=== PATIENT | male | born 1975 | race Caucasian/White ===

== ENCOUNTER 2018-03-27 15:27 | Inpatient (IN) | payer MEDICAID, SELFPAY ==
[2018-03-27] VITALS (8 sets, daily range): BP systolic 108–133; BP diastolic 65–89; PULSE 74–89; RESP 16–20; TEMP 36.8–37.1; O2SAT 92–99; BMI 36.7; BMI 35.7; BMI 35.8
--- NOTE | 2018-03-27 15:54 | CT_ITS ---
STUDY: CT BRAIN WITHOUT CONTRAST REASON FOR EXAM: Male, 42 years old. Headache after a fall, patient has left-sided paralysis RADIATION DOSAGE (If Supplied By Facility): CTDIvol = ( 44.99 ) mGy, DLP = ( 832.67 ) mGycm TECHNIQUE: Transaxial CT imaging of the brain was performed without administration of intravenous contrast material. Individualized dose optimization techniques were used for this CT. COMPARISON: None. FINDINGS: There is evidence of a right-sided GARMENT [employer]ISHER shunt tube, tip is in the midline. There is hypoattenuation involving most of the right cerebral hemisphere consistent with previous infarct or ischemic event. There is negative mass effect from the encephalomalacia. The ventricles are effaced. The basilar cisterns are widely patent. There is loss of cortez-white matter differentiation the left cerebral hemisphere again consistent with likely previous ischemic event. There are subdural effusions with subdural calcifications. There is no acute hemorrhage there is some evidence of pneumocephalus likely from the GARMENT FINISHER shunt. No skull fracture or scalp hematoma there are dense falcine calcifications. CT/Brain/Head without Contrast IMPRESSION: Hypoattenuation involving nearly the entirety of the right cerebral hemisphere likely from previous ischemic event. There is also marked abnormality in the left sternal hemisphere with loss of cortez-white matter differentiation also likely due to previous ischemic event. There is no acute hemorrhage Satisfactory positioning of a GARMENT FINISHER shunt tube Effacement of the ventricular system, basilar cisterns widely patent Bilateral subdural effusions Subdural calcifications and prominent falcine calcification Electronically Signed: Teddy Hernández MD at 16:58 EDT , Service support ,
[2018-03-27] MEDS: 0.9% Normal Saline 1,000 ML 250 ML IV (16:05)
--- NOTE | 2018-03-27 16:05 | ED.VISSUMM ---
- ER Visit Summary Date of Service: 03/27/18 Chief Complaint: Increasing weakness and frequent falls History of Present Illness: The patient is a 42 M who presents by ambulance because he was on the floor for 1 hour. Friend called ambulance. Mother was in the room when I saw patient. He has had increasing falls over the last 2-3 weeks. Increasing weakness in his legs. He lives alone. 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 He has a shunt in place. He has the original shunt still in place. He denies headache. I trouble with his vision. I trouble speech or swallowing. He complains of generalized weakness in his legs. He is normally able to ambulate. He denies any ringing in his ears or decreased hearing. He denies any ocular pain, photophobia. He denies neck pain. He denies chest pain, palpitations, orthopnea or PND. He denies shortness of breath, cough or dyspnea on exertion. He denies nausea, vomiting diarrhea. He denies dysuria, frequency, urgency or hematuria. He denies any pain. Patient does live alone. He states he has not bathed in 3 days. He is uncertain whether he is lost any weight. Physical Examination: Vital signs are marked for slight elevation blood pressure 133/88. Patient has scars noted scalp secondary to traumatic brain injury and placement of shunt. Pupils equal round reactive. Extra muscle intact. Difficult to see fundi. No hemotympanum. No septal deviation hematoma. No TMJ tenderness. No evidence of malocclusion. Trachea is midline. There is no cervical spine tenderness. Contractures left upper extremity secondary to original injury. Heart is regular without murmur, gallop or rub lungs are clear to auscultation. Abdomen is soft nontender. He has 1-2+ pitting edema lower extremity with venous dermatologic stasis changes noted. He is alert he is oriented. He has neurologic deficit left side greater than right. Test Results: CT of the head reveals proper position of the shunt. Small bilateral chronic subdural hematomas and in the basement of the entire right hemisphere secondary to prior injury. CMP is essentially unremarkable. UA is pending at time of this dictation and admission Emergency Department Course and Treatment: With frequent falls increasing weakness and history of shunt CT of the head was obtained to evaluate for any intracranial process. He was placed on a monitor to evaluate for any dysrhythmia. Since he has not been eating well unable to care for self baseline blood work was obtained. Patient will require hospitalization for safety reasons and consultation with case management. Treatment Plan: Case was discussed with hospitalist. He will be admitted/MedSurg floor with consult to case management Disposition: Medical surgical unit Impression: 1. Failure to thrive 2. Frequent falls 3. Traumatic brain injury, remote with chronic small bilateral subdural hematomas This note was generated with [employer] dictation software. It may contain incorrect words, spelling, and punctuation that were not noted in review of the chart prior to signing ED Disposition - Plan for ED Patient: Chief Complaint: Fall Referrals: Heron Mcdaniel DO [Primary Care Provider] -
[2018-03-27 16:43] LABS: ALB/GLOB Ratio 0.8 RATIO (0.9-2.4); AST(SGOT) 11 U/L (15-37); Alanine Aminotransfer ALT/SGPT 26 U/L (16-61); Albumin, Serum 3.1 g/dL (3.2-5.0); Alkaline Phosphatase 74 U/L (45-117); Anion Gap 7 (5-15); BUN 8 mg/dL (7-18); BUN/Creat Ratio 10.4 RATIO (10-20); Calcium,Total 7.9 mg/dL (8.5-10.1); Chloride 107 mmol/L (98-107); Creatinine, Serum 0.77 mg/dL (0.70-1.30); EST Glomerular Filtration Rate 118 mL/min (>60); Est Glom Filt Rate - Afr Amer 142 mL/min (>60); Estimated Creatinine Clearance 124.97 ml/min; Globulin 3.8 g/dL (2.2-4.2); Glucose 113 mg/dL (74-106); Protein, Total 6.9 g/dL (6.4-8.2); Sodium Level 142 mmol/L (136-145)
--- NOTE | 2018-03-27 17:05 | PCM.HP.STD ---
Problem List (1) Encephalopathy acute Status: Acute (2) Frequent falls Status: Acute (3) Failure to thrive in adult Status: Acute (4) TBI (traumatic brain injury) Status: Chronic Qualifiers: Encounter type: sequela Loss of consciousness presence/duration: with LOC of unspecified duration Qualified Code(s): S06.9X9S - Unspecified intracranial injury with loss of consciousness of unspecified duration, sequela (5) Left hemiplegia Status: Chronic (6) Stool incontinence Status: Chronic Qualifiers: Fecal incontinence type: unspecified Qualified Code(s): R15.9 - Full incontinence of feces (7) Tobacco use Status: Chronic (8) Obesity (BMI 30-39.9) Status: Chronic (9) Depression Status: Chronic Qualifiers: Depression Type: unspecified Qualified Code(s): F32.9 - Major depressive disorder, single episode, unspecified History of Present Illness Date of Admission: 03/27/18 Chief Complaint: Failure to Thrive, Falls, Confusion The patient is a 42 y/o M w/ PMHx: Depression, Tobacco use, Obesity, TBI 1995 w/ following intermittent stool/urine incontinence, L sided hemiplegia w/ CIVIL CELEBRANT shunt who presents to the [facility] on 03/27/18 with history of ongoing depression with no suicidal ideation which she attributes as to the etiology for worsening inability to care for himself but additionally notes recent confusion, frequent falls from his wheelchair with increased weakness, unable to transfer which he has been able to do prior leading to an inability to maintain a safe living and clean environment. Upon ED presentation he is disheveled, covered in stool, grime of several weeks of not bathing and wearing the same clothing. He admits to not bathing likely for several weeks. He does note that his mother lives near him but is unclear about her ability to help in his care. In the ED workup included T 98.3, heart rate 87, BP 133/88, respiratory rate 17, 92% room air, CMP not marked appearing side mild glucose elevation 113, CBC not obtained in the ED, urinalysis requested per ED and pending however given patient's current disheveled state with severe intertrigo suspected be a poor sample, CT head with hypoattenuation involving nearly the entirety of the right cerebral hemisphere likely from previous ischemic events and also marked abnormality in the left sternal hemisphere with loss of cortez white matter likely due to previous ischemic event, no acute hemorrhage, satisfactory positioning of the CIVIL CELEBRANT shunt tube, effacement of the ventricular system, basilar cisterns widely patent, bilateral subdural effusions, subdural calcifications and prominent falcine calcification. In the ED patient administered NS. Given inability to care for self safely patient admitted for CM, SW evaluation for placement needs consideration. Past Medical History Past Medical History (Chronic Problems): Chronic Problems TBI (traumatic brain injury) (Chronic) Left hemiplegia (Chronic) Stool incontinence (Chronic) Tobacco use (Chronic) Obesity (BMI 30-39.9) (Chronic) Depression (Chronic) Allergies No Known Allergies Allergy (Verified 05/14/17 18:23) Home Medications: Ambulatory Orders Medication Instructions Recorded No Known/Unobtainable [No Known 03/01/17 Home Medications] Psychiatric History: Depression Lives: Alone Smoking Status: Current every day smoker - / ppd, occasionally rolls his own. Tobacco Use: Cigarettes Alcohol: Occasional Drugs: Marijuana - *Family History Paternal History Items: - - Denies any marked maternal or paternal family history including DM, HTN, HD. Maternal History Items: - - Denies any marked maternal or paternal family history including DM, HTN, HD. Review of Systems Constitutional: Reports: Malaise, Weakness, Fatigue. Denies: Chills, Fever, Weight Change HEENT: Denies: Head Aches, Sinus Congestion, Sinus Drainage Cardiovascular: Denies: Chest Pain, Chest Pressure, Chest Tightness, Light Headedness, Palpitations Respiratory: Denies: Cough, Shortness of Breath, Shortness of breath at rest, Sputum production Gastrointestinal: Reports: - - Stool incontinence occasionally.. Denies: Abdominal Pain, Nausea, Vomiting Genitourinary: Reports: Incontinence. Denies: Dysuria Musculoskeletal: Denies: Joint Pain, Joint Tenderness Skin: Reports: Rash, Skin Changes. Denies: Wounds Neurological: Reports: Balance problems, Confusion, Focal weakness, Numbness, Tingling Psychiatric: Reports: Depression. Denies: Anxiety, Homicidal Ideations, Suicidal Ideations Hematologic/ Lymphatic: Denies: Easy Bruising, Easy Bleeding VTE Information - Inpt Only VTE Present on Admission: No VTE Mechan Device Prophylaxis: SCD's VTE Pharm Prophylaxis ordered?: Yes Patient Problems: Active and Suspected Problems Failure to thrive in adult (Acute) Frequent falls (Acute) Encephalopathy acute (Acute) Subjective: Seated upright in the ED bed, answering most questions appropriately, notes depression but extremely cheerful. Objective: Physical Examination: General: awake, alert, oriented 3/4, odd affect as extremely cheerful, speech excited but notes depressed, remains cooperative, seated upright in the ED bed in no apparent distress, immediately foul smelling and shovel appearance upon entering room. Skin: normal color, turgor, no icterus, cyanosis except notable severe bilateral groin intertrigo. HEENT: AT/NC, EOMI, does have chronic L peripheral field deficit, PERRLA, dry MM, no carotid bruits or JVD noted. Lungs: CTA bilaterally, moderate effort, moderate decrease BL bases, no rales, ronchi or wheezing. Heart: Regular rate and rhythm; no gallop, rub audible. Abdomen: soft, obese, NTTP, ND, normal BS, no HSM. Extremities: no cyanosis, clubbing, BL LE mild ankle edema, coated in dry skin, dirt, poor foot care BL. Neurological: patient awake, alert, oriented as noted; cognitive function appears decreased, but unclear baseline, may in fact be baseline intact but given severity of disheveled, unkempt status suspect he has had worsened status; pupils equally reactive to light and accomodation; cranial nerves grossly normal, moving extremities expect L chronic hemiplegia, strength severely globally decreased, unable to sit up in the ED bed by himself, requires full assist. Psychiatric: Odd affect as extremely cheerful, speech excited but notes depressed, denies SI. - Physical Exam Vital Signs Temp Pulse Resp BP Pulse Ox 98.3 F 87 17 133/88 H 92 03/27/18 15:28 03/27/18 15:28 03/27/18 15:28 03/27/18 15:28 03/27/18 15:28 Oxygen Delivery Method Room Air Weight: 248 lb 10.903 oz Body Mass Index (BMI) 36.7 Laboratory Tests Past 24 Hrs 03/27/18 16:03 Sodium 142 Potassium 4.0 Chloride 107 Carbon Dioxide 28.0 Anion Gap 7 BUN 8 Creatinine 0.77 Estim Creat Clear Calc 124.97 Est GFR (MDRD) Af Amer 142 Est GFR (MDRD) Non-Af 118 BUN/Creatinine Ratio 10.4 Glucose 113 H Calcium 7.9 L Total Bilirubin 0.60 AST 11 L ALT 26 Alkaline Phosphatase 74 Total Protein 6.9 Albumin 3.1 L Globulin 3.8 Albumin/Globulin Ratio 0.8 L Assessment/Plan All Active Problems Failure to thrive in adult (Acute) Frequent falls (Acute) Encephalopathy acute (Acute) The patient is a 42 y/o M w/ PMHx: Depression, Tobacco use, Obesity, TBI 1995 w/ following intermittent stool/urine incontinence, L sided hemiplegia w/ CIVIL CELEBRANT shunt who presents to the [facility] on 03/27/18 with history of ongoing depression with no suicidal ideation which she attributes as to the etiology for worsening inability to care for himself but additionally notes recent confusion, frequent falls from his wheelchair with increased weakness, unable to transfer which he has been able to do prior leading to an inability to maintain a safe living and clean environment. (1) Frequent Falls, ? Encephalopathy unclear etiology, Failure to Thrive w/ History of Remote TBI w/ Chronic L sided Hemiplegia, Left Vision Field Deficit, Incontinence (Stool/Urine) concerning for Possible Infection, Possible Neurological Etiology, Unclear Specific: ED workup included CMP not marked appearing side mild glucose elevation 113, CBC pending, urinalysis requested per ED and pending however given patient's current disheveled state with severe intertrigo suspected be a poor sample, CT head with hypoattenuation involving nearly the entirety of the right cerebral hemisphere likely from previous ischemic events and also marked abnormality in the left sternal hemisphere with loss of cortez white matter likely due to previous ischemic event, no acute hemorrhage, satisfactory positioning of the CIVIL CELEBRANT shunt tube, effacement of the ventricular system, basilar cisterns widely patent, bilateral subdural effusions, subdural calcifications and prominent falcine calcification. Given presentation, concern for possible underlying neurological etiology for current decline aside suspected depression, will admit to PCU, maintain on telemetry, obtain straight catheterization urine given status, unclear intervention w/ trauma intervention thus hold on MRI and patient unable to give details, repeat Neurology consultation, maintain on asa, obtain mag, obtain TSH, UA as noted, ammonia level, cardiac enzyme x 1, obtain CBC with differential. Maintain on fall precautions, PT, OT, CM consulted for suspected placement needs. (2) Intertrigo, Severe: Will cleanse upon admission, bathing daily, initiate nystatin powder. (3) Depression: Will start zoloft low dose with plan for titration upward. Will need therapy assessment at SNF. Denies SI. CM, SW consulted. (4) Hyperglycemia: Admission glucose mildly elevated, HgbA1c pending. (5) Poor Foot Care, Contractures, Concurrent Onychomycosis: Podiatry consultation pending. (6) Tobacco Abuse: Encouraged cessation, inpatient consultation per RT, NR if desired. (7) Obesity: Weight loss and lifestyle changes encouraged, nutrition consulted for education and teaching. (8) GERD: Famotidine. (9) DVT Prophylaxis: SCDs, lovenox. Code Visit Inpatient E&M: 67859 Init Hosp L3
--- NOTE | 2018-03-27 17:26 | HP.PCM_ITS ---
Problem List (1) Encephalopathy acute Status: Acute (2) Frequent falls Status: Acute (3) Failure to thrive in adult Status: Acute (4) TBI (traumatic brain injury) Status: Chronic Qualifiers: Encounter type: sequela Loss of consciousness presence/duration: with LOC of unspecified duration Qualified Code(s): S06.9X9S - Unspecified intracranial injury with loss of consciousness of unspecified duration, sequela (5) Left hemiplegia Status: Chronic (6) Stool incontinence Status: Chronic Qualifiers: Fecal incontinence type: unspecified Qualified Code(s): R15.9 - Full incontinence of feces (7) Tobacco use Status: Chronic (8) Obesity (BMI 30-39.9) Status: Chronic (9) Depression Status: Chronic Qualifiers: Depression Type: unspecified Qualified Code(s): F32.9 - Major depressive disorder, single episode, unspecified History of Present Illness Date of Admission: 03/27/18 Chief Complaint: Failure to Thrive, Falls, Confusion The patient is a 42 y/o M w/ PMHx: Depression, Tobacco use, Obesity, TBI 1995 w / following intermittent stool/urine incontinence, L sided hemiplegia w/ REHAB MANAGER shunt who presents to the [facility] on 03/27/18 with history of ongoing depression with no suicidal ideation which she attributes as to the etiology for worsening inability to care for himself but additionally notes recent confusion, frequent falls from his wheelchair with increased weakness, unable to transfer which he has been able to do prior leading to an inability to maintain a safe living and clean environment. Upon ED presentation he is disheveled, covered in stool, grime of several weeks of not bathing and wearing the same clothing. He admits to not bathing likely for several weeks. He does note that his mother lives near him but is unclear about her ability to help in his care. In the ED workup included T 98.3, heart rate 87, BP 133/88, respiratory rate 17, 92% room air, CMP not marked appearing side mild glucose elevation 113, CBC not obtained in the ED, urinalysis requested per ED and pending however given patient's current disheveled state with severe intertrigo suspected be a poor sample, CT head with hypoattenuation involving nearly the entirety of the right cerebral hemisphere likely from previous ischemic events and also marked abnormality in the left sternal hemisphere with loss of cortez white matter likely due to previous ischemic event, no acute hemorrhage, satisfactory positioning of the REHAB MANAGER shunt tube, effacement of the ventricular system, basilar cisterns widely patent, bilateral subdural effusions, subdural calcifications and prominent falcine calcification. In the ED patient administered NS. Given inability to care for self safely patient admitted for CM, SW evaluation for placement needs consideration. Past Medical History Past Medical History (Chronic Problems): Chronic Problems TBI (traumatic brain injury) (Chronic) Left hemiplegia (Chronic) Stool incontinence (Chronic) Tobacco use (Chronic) Obesity (BMI 30-39.9) (Chronic) Depression (Chronic) Allergies No Known Allergies Allergy (Verified 05/14/17 18:23) Home Medications: Ambulatory Orders Medication Instructions Recorded No Known/Unobtainable [No Known 03/01/17 Home Medications] Psychiatric History: Depression Lives: Alone Smoking Status: Current every day smoker - / ppd, occasionally rolls his own. Tobacco Use: Cigarettes Alcohol: Occasional Drugs: Marijuana - *Family History Paternal History Items: - - Denies any marked maternal or paternal family history including DM, HTN, HD. Maternal History Items: - - Denies any marked maternal or paternal family history including DM, HTN, HD. Review of Systems Constitutional: Reports: Malaise, Weakness, Fatigue. Denies: Chills, Fever, Weight Change HEENT: Denies: Head Aches, Sinus Congestion, Sinus Drainage Cardiovascular: Denies: Chest Pain, Chest Pressure, Chest Tightness, Light Headedness, Palpitations Respiratory: Denies: Cough, Shortness of Breath, Shortness of breath at rest, Sputum production Gastrointestinal: Reports: - - Stool incontinence occasionally.. Denies: Abdominal Pain, Nausea, Vomiting Genitourinary: Reports: Incontinence. Denies: Dysuria Musculoskeletal: Denies: Joint Pain, Joint Tenderness Skin: Reports: Rash, Skin Changes. Denies: Wounds Neurological: Reports: Balance problems, Confusion, Focal weakness, Numbness, Tingling Psychiatric: Reports: Depression. Denies: Anxiety, Homicidal Ideations, Suicidal Ideations Hematologic/ Lymphatic: Denies: Easy Bruising, Easy Bleeding VTE Information - Inpt Only VTE Present on Admission: No VTE Mechan Device Prophylaxis: SCD's VTE Pharm Prophylaxis ordered?: Yes Patient Problems: Active and Suspected Problems Failure to thrive in adult (Acute) Frequent falls (Acute) Encephalopathy acute (Acute) Subjective: Seated upright in the ED bed, answering most questions appropriately, notes depression but extremely cheerful. Objective: Physical Examination: General: awake, alert, oriented 3/4, odd affect as extremely cheerful, speech excited but notes depressed, remains cooperative, seated upright in the ED bed in no apparent distress, immediately foul smelling and shovel appearance upon entering room. Skin: normal color, turgor, no icterus, cyanosis except notable severe bilateral groin intertrigo. HEENT: AT/NC, EOMI, does have chronic L peripheral field deficit, PERRLA, dry MM , no carotid bruits or JVD noted. Lungs: CTA bilaterally, moderate effort, moderate decrease BL bases, no rales, ronchi or wheezing. Heart: Regular rate and rhythm; no gallop, rub audible. Abdomen: soft, obese, NTTP, ND, normal BS, no HSM. Extremities: no cyanosis, clubbing, BL LE mild ankle edema, coated in dry skin, dirt, poor foot care BL. Neurological: patient awake, alert, oriented as noted; cognitive function appears decreased, but unclear baseline, may in fact be baseline intact but given severity of disheveled, unkempt status suspect he has had worsened status ; pupils equally reactive to light and accomodation; cranial nerves grossly normal, moving extremities expect L chronic hemiplegia, strength severely globally decreased, unable to sit up in the ED bed by himself, requires full assist. Psychiatric: Odd affect as extremely cheerful, speech excited but notes depressed, denies SI. - Physical Exam Vital Signs Temp Pulse Resp BP Pulse Ox 98.3 F 87 17 133/88 H 92 03/27/18 15:28 03/27/18 15:28 03/27/18 15:28 03/27/18 15:28 03/27/18 15:28 Oxygen Delivery Method Room Air Weight: 248 lb 10.903 oz Body Mass Index (BMI) 36.7 Laboratory Tests Past 24 Hrs 03/27/18 16:03 Sodium 142 Potassium 4.0 Chloride 107 Carbon Dioxide 28.0 Anion Gap 7 BUN 8 Creatinine 0.77 Estim Creat Clear Calc 124.97 Est GFR (MDRD) Af Amer 142 Est GFR (MDRD) Non-Af 118 BUN/Creatinine Ratio 10.4 Glucose 113 H Calcium 7.9 L Total Bilirubin 0.60 AST 11 L ALT 26 Alkaline Phosphatase 74 Total Protein 6.9 Albumin 3.1 L Globulin 3.8 Albumin/Globulin Ratio 0.8 L Assessment/Plan All Active Problems Failure to thrive in adult (Acute) Frequent falls (Acute) Encephalopathy acute (Acute) The patient is a 42 y/o M w/ PMHx: Depression, Tobacco use, Obesity, TBI 1995 w / following intermittent stool/urine incontinence, L sided hemiplegia w/ REHAB MANAGER shunt who presents to the [facility] on 03/27/18 with history of ongoing depression with no suicidal ideation which she attributes as to the etiology for worsening inability to care for himself but additionally notes recent confusion, frequent falls from his wheelchair with increased weakness, unable to transfer which he has been able to do prior leading to an inability to maintain a safe living and clean environment. (1) Frequent Falls, ? Encephalopathy unclear etiology, Failure to Thrive w/ History of Remote TBI w/ Chronic L sided Hemiplegia, Left Vision Field Deficit, Incontinence (Stool/Urine) concerning for Possible Infection, Possible Neurological Etiology, Unclear Specific: ED workup included CMP not marked appearing side mild glucose elevation 113, CBC pending, urinalysis requested per ED and pending however given patient's current disheveled state with severe intertrigo suspected be a poor sample, CT head with hypoattenuation involving nearly the entirety of the right cerebral hemisphere likely from previous ischemic events and also marked abnormality in the left sternal hemisphere with loss of cortez white matter likely due to previous ischemic event, no acute hemorrhage, satisfactory positioning of the REHAB MANAGER shunt tube, effacement of the ventricular system, basilar cisterns widely patent, bilateral subdural effusions , subdural calcifications and prominent falcine calcification. Given presentation, concern for possible underlying neurological etiology for current decline aside suspected depression, will admit to PCU, maintain on telemetry, obtain straight catheterization urine given status, unclear intervention w/ trauma intervention thus hold on MRI and patient unable to give details, repeat Neurology consultation, maintain on asa, obtain mag, obtain TSH, UA as noted, ammonia level, cardiac enzyme x 1, obtain CBC with differential. Maintain on fall precautions, PT, OT, CM consulted for suspected placement needs. (2) Intertrigo, Severe: Will cleanse upon admission, bathing daily, initiate nystatin powder. (3) Depression: Will start zoloft low dose with plan for titration upward. Will need therapy assessment at SNF. Denies SI. CM, SW consulted. (4) Hyperglycemia: Admission glucose mildly elevated, HgbA1c pending. (5) Poor Foot Care, Contractures, Concurrent Onychomycosis: Podiatry consultation pending. (6) Tobacco Abuse: Encouraged cessation, inpatient consultation per RT, NR if desired. (7) Obesity: Weight loss and lifestyle changes encouraged, nutrition consulted for education and teaching. (8) GERD: Famotidine. (9) DVT Prophylaxis: SCDs, lovenox. Code Visit Inpatient E&M: 73036 Init Hosp L3
--- NOTE | 2018-03-27 17:27 | ED.RN ---
PT WAS INCONTINENT OF STOOL AND CLEANED WITH LINENS CHANGED AND ATTENDS APPLIED BY JONAH LOVE RN AND THIS NURSE. THIS NURSE ATTEMPTED TO STRAIGHT CATH PT AND NO URINE OBTAINED. FLUIDS INFUSING WIDE OPEN. WILL ATTEMPT LATER TO OBTAIN URINE.
[2018-03-27 18:36] LABS: Absolute Lymphocyte Count 3.59 X10^3/ul (0.83-4.51); Basophil# 0.02 X10^3/uL; Basophil% 0.1 % (0-1); Eosinophil# 0.32 X10^3/uL; Eosinophils% 2.3 % (0-5); Hematocrit 44.9 % (40-54); Hemoglobin 14.7 g/dl (13.0-16.5); Lymphocyte # 3.59 X10^3/ul (4.0); Lymphocyte % 25.9 % (19-41); Mean Corp Hgb Conc 32.7 g/gl (32-36); Mean Corpuscular Hgb 30.7 pg (27.0-32.0); Mean Corpuscular Volume 93.7 fL (80-94); Mean Platelet Vol. 10.3 fl (6.2-12.0); Monocyte# 0.96 X10^3/uL; Monocyte% 6.9 % (0-10); Neutrophil # 8.96 X10^3/uL (2.7-7.7); Neutrophil % 64.7 % (47-70); Platelet Count 305 K/mm3 (150-450); RBC Distribution Width CV 12.8 % (11.6-14.6); RBC Distribution Width SD 44.2 fl (35.1-43.9); Red Blood Count 4.79 M/mm3 (4.6-6.2); White Blood Count 13.9 K/mm3 (4.4-11.0)
[2018-03-27 18:37] LABS: POSITIVE COUNT NO; POSITIVE DIFFERENTIAL NO; POSITIVE MORPHOLOGY NO
[2018-03-27 19:05] LABS: Thyroid Stim Hormone (TSH) 2.16 uIU/mL (0.358-3.74)
[2018-03-27] MEDS: Nystatin Powder 15gm Bottle 1 APPLIC TOPICAL ×2 (19:05→22:28)
[2018-03-27] MEDS: Sertraline 50 MG Tablet PO (19:06)
[2018-03-27] MEDS: Famotidine 20 MG Tablet PO (22:28)
[2018-03-28] VITALS (13 sets, daily range): BP systolic 117–132; BP diastolic 70–82; PULSE 58–80; RESP 16–18; TEMP 36.6–36.9; O2SAT 95–99
[2018-03-28 00:47] LABS: Bacteria 0 SEEN /hpf (None Seen); Mucous, Urine 0 SEEN /hpf (<or=2+); Squamous Epithelial Cells - UA 0 SEEN /hpf (0-5); White Blood Cells 0 SEEN /hpf (0-5)
[2018-03-28 00:48] LABS: Color, Urine Yellow (Yellow); Glucose, Dipstick Normal (Normal); Ketone-Dipstick Negative (Negative); Leukocyte Esterase-Dipstick 25 /ul (Negative); Nitrite-Dipstick Negative (Negative); Occult Blood-Urine 50 /ul (Negative); Protein-Dipstick Negative (Negative); Specific Gravity, Urine 1.015 (1.002-1.030); Urine Bilirubin Dipstick Negative (Negative); Urine Clarity Clear (Clear); Urine Urobilinogen 1 mg/dl (Normal)
[2018-03-28 01:06] LABS: Red Blood Cells-Urine 5-10 SEEN /hpf (0-5)
[2018-03-28] MEDS: Acetaminophen 325 MG Tablet 650 MG PO (05:44)
[2018-03-28] MEDS: Nystatin Powder 15gm Bottle 1 APPLIC TOPICAL ×3 (05:44→21:52)
[2018-03-28 06:04] LABS: Absolute Lymphocyte Count 3.07 X10^3/ul (0.83-4.51); Absolute Neutrophil Count 5.3 X10^3/uL (2.0-7.7); Basophil# 0.04 X10^3/uL; Basophil% 0.4 % (0-1); Eosinophil# 0.32 X10^3/uL; Eosinophils% 3.4 % (0-5); Hematocrit 42.4 % (40-54); Hemoglobin 14.1 g/dl (13.0-16.5); Lymphocyte # 3.07 X10^3/ul (4.0); Lymphocyte % 32.1 % (19-41); Mean Corp Hgb Conc 33.3 g/gl (32-36); Mean Corpuscular Hgb 31.5 pg (27.0-32.0); Mean Corpuscular Volume 94.6 fL (80-94); Mean Platelet Vol. 10.7 fl (6.2-12.0); Monocyte# 0.79 X10^3/uL; Monocyte% 8.3 % (0-10); Neutrophil # 5.32 X10^3/uL (2.7-7.7); Neutrophil % 55.7 % (47-70); Platelet Count 283 K/mm3 (150-450); RBC Distribution Width CV 12.9 % (11.6-14.6); RBC Distribution Width SD 43.6 fl (35.1-43.9); Red Blood Count 4.48 M/mm3 (4.6-6.2); White Blood Count 9.6 K/mm3 (4.4-11.0)
[2018-03-28 06:40] LABS: ALB/GLOB Ratio 0.7 RATIO (0.9-2.4); AST(SGOT) 11 U/L (15-37); Alanine Aminotransfer ALT/SGPT 22 U/L (16-61); Albumin, Serum 2.6 g/dL (3.2-5.0); Alkaline Phosphatase 67 U/L (45-117); Anion Gap 7 (5-15); BUN 8 mg/dL (7-18); BUN/Creat Ratio 10.5 RATIO (10-20); Calcium,Total 7.3 mg/dL (8.5-10.1); Chloride 111 mmol/L (98-107); Cholesterol 141 mg/dL (200); Creatinine, Serum 0.76 mg/dL (0.70-1.30); EST Glomerular Filtration Rate 119 mL/min (>60); Est Glom Filt Rate - Afr Amer 144 mL/min (>60); Estimated Creatinine Clearance 126.62 ml/min; Globulin 3.7 g/dL (2.2-4.2); Glucose 160 mg/dL (74-106); High Density Lipoprotein 18 mg/dL; Protein, Total 6.3 g/dL (6.4-8.2); Sodium Level 142 mmol/L (136-145); Triglycerides 186 mg/dL; Very Low Density Lipoprotein 37 mg/dL (5-40)
[2018-03-28 06:42] LABS: POSITIVE COUNT NO; POSITIVE DIFFERENTIAL NO; POSITIVE MORPHOLOGY NO
[2018-03-28] MEDS: Enoxaparin 40 MG/0.4 ML Syringe SC (09:30)
[2018-03-28] MEDS: Famotidine 20 MG Tablet PO ×2 (09:30→21:52)
[2018-03-28] MEDS: Sertraline 50 MG Tablet PO (09:30)
[2018-03-28] MEDS: Aspirin 81 MG TAB.CHEW PO (09:31)
--- NOTE | 2018-03-28 10:14 | RAD_ITS ---
STUDY: X-RAY - RIGHT ANKLE REASON FOR EXAM: Male, 42 years old. Lateral side pain. History of fall. TECHNIQUE: 3 view(s) of the ankle. COMPARISON: None. FINDINGS: Old fracture deformity of the right distal fibula. Normal distal tibia. Normal medial and lateral malleoli. Normal tibiotalar articulation and ankle mortise. Normal visualized talus and calcaneus. The visualized subtalar, talonavicular, calcaneocuboid and tarsal articulations are normal. The soft tissue structures are unremarkable. RAD/Ankle min 3 Views IMPRESSION: 1. No acute fracture or dislocation of the right ankle. 2. Old fracture deformity of the right distal fibula. Electronically Signed: Gonzalo Giordano MD at 11:23 EDT , Service support ,
--- NOTE | 2018-03-28 10:45 | PCM.PN.HOSP ---
Patient Problems: Active and Suspected Problems Failure to thrive in adult (Acute) Frequent falls (Acute) Encephalopathy acute (Acute) Subjective: The patient is a 42 y/o M w/ PMHx: Depression, Tobacco use, Obesity, TBI 1995 w/ following intermittent stool/urine incontinence, L sided hemiplegia w/ TITLE CHECKER shunt who presents to the [facility] on 03/27/18 with history of ongoing depression with no suicidal ideation which she attributes as to the etiology for worsening inability to care for himself but additionally notes recent confusion, frequent falls from his wheelchair with increased weakness, unable to transfer which he has been able to do prior leading to an inability to maintain a safe living and clean environment. Frequent Falls, ? Encephalopathy unclear etiology, Failure to Thrive w/ History of Remote TBI w/ Chronic L sided Hemiplegia, Left Vision Field Deficit, Incontinence (Stool/Urine) concerning for Possible Infection RULED OUT, Possible Neurological Etiology versus Chronic TBI deficits confounded by Depression, Unclear Specific Etiology w/ work-up ongoing: ED workup included CMP not marked appearing side mild glucose elevation 113, CBC pending, urinalysis requested per ED and pending however given patient's current disheveled state with severe intertrigo suspected be a poor sample thus deferred to straight cath following admit which was unremarkable, CT head with hypoattenuation involving nearly the entirety of the right cerebral hemisphere likely from previous ischemic events and also marked abnormality in the left sternal hemisphere with loss of cortez white matter likely due to previous ischemic event, no acute hemorrhage, satisfactory positioning of the TITLE CHECKER shunt tube, effacement of the ventricular system, basilar cisterns widely patent, bilateral subdural effusions, subdural calcifications and prominent falcine calcification. Given presentation, concern for possible underlying neurological etiology for current decline aside suspected depression. Patient admitted to PCU, maintained on telemetry without event, no worsening of neurological checks, mag normal, TSH normal, elevated BS with pending HgBA1c, ammonia level normal, cardiac enzyme normal. Does appear 03/28/18 improved in appearance and interactive, family agrees, Neurology consultation pending. PT, OT consulted as well as CM. Will need placement given severity of deficits and inability to safely care for self. Patient with no acute events overnight per self and per nursing report. Patient now does admit to mild right ankle discomfort and decreased range of motion although was not market appearing upon ED presentation. He states he is unclear about possible injury prior with falls frequently. Pain film obtained and pending. Patient more alert today, interactive, cheerful with family present additionally and confirmation of patient inability to care for self, frequent falls, decreased interactiveness with family. Patient denies fevers, chills, nausea, emesis, abdominal pain, chest pain or dyspnea. Objective: Physical Examination: General: awake, alert, orientation improved today, 4/, improved affect, more interactive appropriately. Skin: normal color, turgor, no icterus, cyanosis except improved bilateral groin intertrigo. HEENT: AT/NC, EOMI, does have chronic L peripheral field deficit, PERRLA, improved MMM. Lungs: CTA bilaterally, moderate effort, moderate decrease BL bases, no rales, ronchi or wheezing. Heart: Regular rate and rhythm; no gallop, rub audible. Abdomen: soft, obese, abdominal prior surgical scars present, NTTP, ND, normal BS. Extremities: no cyanosis, clubbing, BL LE mild ankle edema, pending podiatry evaluation for poor foot care BL, mild R ankle decreased ROM Neurological: patient awake, alert, orientation improved; cognitive function improved from prior, family notes improved appearance and mentation; pupils equally reactive to light and accomodation aside chronic deficits; cranial nerves grossly normal aside chronic deficits, moving extremities expect L chronic hemiplegia, strength severely globally decreased, requires 3 people to transition to chair this AM. Psychiatric: More appropriate affect today, notes feeling improved, no evidence of anxiety or depression today. Vitals/I&O's: Vital Signs Temp Pulse Resp BP Pulse Ox 98.3 F 76 16 117/70 95 03/28/18 09:26 03/28/18 09:26 03/28/18 09:26 03/28/18 09:26 03/28/18 09:26 Oxygen Delivery Method Room Air Weight: 242 lb 4.608 oz Body Mass Index (BMI) 35.7 Intake and Output for Last 24 Hours 03/26/18 03/27/18 03/28/18 23:59 23:59 23:59 Intake Total 896 / 896 755 / 755 Output Total 400 / 400 Balance 896 / 896 355 / 355 Laboratory Results 03/27/18 18:20: WBC 13.9 H, RBC 4.79, Hgb 14.7, Hct 44.9, MCV 93.7, MCH 30.7, MCHC 32.7, RDW 12.8, RDW Differential 44.2 H, Plt Count 305, MPV 10.3, Immature Gran % (Auto) 0.100, Neut % (Auto) 64.7, Lymph % (Auto) 25.9, [place] % (Auto) 6.9, Eos % (Auto) 2.3, Baso % (Auto) 0.1, Absolute Neuts (auto) 9.0 H, Absolute Lymphs (auto) 3.59, Total Counted Not Reportable 03/27/18 18:20: Magnesium 2.0, Troponin I < 0.015, TSH 2.16 03/27/18 18:20: Ammonia 26.0 03/28/18 00:40: Urine Color Yellow, Urine Clarity Clear, Urine pH 8.0, Ur Specific [place] 1.015, Urine Protein Negative, Urine Glucose (UA) Normal, Urine Ketones Negative, Urine Occult Blood 50 H, Urine Nitrite Negative, Urine Bilirubin Negative, Urine Urobilinogen 1 H, Ur Leukocyte Esterase 25 H, Urine RBC 5-10 SEEN, Urine WBC 0 SEEN, Ur Squamous Epith Cells 0 SEEN, Urine Bacteria 0 SEEN, Urine Mucus 0 SEEN 03/28/18 05:20: WBC 9.6, RBC 4.48 L, Hgb 14.1, Hct 42.4, MCV 94.6 H, MCH 31.5, MCHC 33.3, RDW 12.9, RDW Differential 43.6, Plt Count 283, MPV 10.7, Immature Gran % (Auto) 0.100, Neut % (Auto) 55.7, Lymph % (Auto) 32.1, [place] % (Auto) 8.3, Eos % (Auto) 3.4, Baso % (Auto) 0.4, Absolute Neuts (auto) 5.3, Absolute Lymphs (auto) 3.07, Total Counted Not Reportable 03/28/18 05:20: Sodium 142, Potassium 4.0, Chloride 111 H, Carbon Dioxide 24.0, Anion Gap 7, BUN 8, Creatinine 0.76, Estim Creat Clear Calc 126.62, Est GFR (MDRD) Af Amer 144, Est GFR (MDRD) Non-Af 119, BUN/Creatinine Ratio 10.5, Glucose 160 H, Calcium 7.3 L, Total Bilirubin 0.60, AST 11 L, ALT 22, Alkaline Phosphatase 67, Total Protein 6.3 L, Albumin 2.6 L, Globulin 3.7, Albumin/Globulin Ratio 0.7 L, Triglycerides 186, Cholesterol 141, LDL Cholesterol 86, VLDL Cholesterol 37, HDL Cholesterol 18 L Current Medications Acetaminophen (Tylenol) 650 mg PO Q4H PRN PRN PRN Reason: Headache/Temp>99F Last Admin: 03/28/18 05:44 Dose: 650 mg Acetaminophen (Tylenol) 650 mg RECTAL Q4H PRN PRN PRN Reason: Headache/Temp>99F Acetaminophen (Tylenol Liquid) 650 mg NG Q4H PRN PRN PRN Reason: Headache/Temp>99F Al Hydroxide/Mg Hydroxide (Mylanta Ii) 30 ml PO Q6H PRN PRN PRN Reason: Gastric burning Aspirin (Aspirin, Baby) 81 mg PO DAILY@0800 [facility] Last Admin: 03/28/18 09:31 Dose: 81 mg Enoxaparin Sodium (Lovenox) 40 mg SC DAILY@1000 [facility] Last Admin: 03/28/18 09:30 Dose: 40 mg Famotidine (Pepcid) 20 mg PO BID [facility] Last Admin: 03/28/18 09:30 Dose: 20 mg Potassium Chloride/Sodium Chloride () 1,000 mls @ 125 mls/hr IV .Q8H [facility] Last Admin: 03/28/18 04:30 Dose: 125 mls/hr Magnesium Hydroxide (Milk Of Magnesia) 30 ml PO DAILY PRN PRN Reason: Constipation Nicotine (Nicoderm Cq (Pbkc)) 7 mg TRANSDERM. DAILY [facility] Last Admin: 03/28/18 09:30 Dose: 7 mg Nutritional Formula (Lactose Free) (Ensure Enlive) 120 ml PO 4X/DAY [facility] Last Admin: 03/28/18 10:25 Dose: Not Given Nystatin (Mycostatin Powder) 1 applic TOPICAL TID [facility] PRN Reason: Protocol Last Admin: 03/28/18 05:44 Dose: 1 applicatio Ondansetron HCl (Zofran) 4 mg IV Q8H PRN PRN PRN Reason: NAUSEA Sertraline HCl (Zoloft) 50 mg PO DAILY [facility] Last Admin: 03/28/18 09:30 Dose: 50 mg Sodium Chloride () 5 - 30 ml IV UD PRN PRN Reason: SALINE FLUSH Trazodone HCl (Desyrel) 50 mg PO QHS PRN PRN Reason: INSOMNIA Medical Necessity - Tobacco Use Smoking Status: Current every day smoker Tobacco Use: Cigarettes Assessment/Plan All Active Problems Failure to thrive in adult (Acute) Frequent falls (Acute) Encephalopathy acute (Acute) The patient is a 42 y/o M w/ PMHx: Depression, Tobacco use, Obesity, TBI 1995 w/ following intermittent stool/urine incontinence, L sided hemiplegia w/ TITLE CHECKER shunt who presents to the [facility] on 03/27/18 with history of ongoing depression with no suicidal ideation which she attributes as to the etiology for worsening inability to care for himself but additionally notes recent confusion, frequent falls from his wheelchair with increased weakness, unable to transfer which he has been able to do prior leading to an inability to maintain a safe living and clean environment. (1) Frequent Falls, ? Encephalopathy unclear etiology, Failure to Thrive w/ History of Remote TBI w/ Chronic L sided Hemiplegia, Left Vision Field Deficit, Incontinence (Stool/Urine) concerning for Possible Infection RULED OUT, Possible Neurological Etiology versus Chronic TBI deficits confounded by Depression, Unclear Specific Etiology w/ work-up ongoing: ED workup included CMP not marked appearing side mild glucose elevation 113, CBC pending, urinalysis requested per ED and pending however given patient's current disheveled state with severe intertrigo suspected be a poor sample thus deferred to straight cath following admit which was unremarkable, CT head with hypoattenuation involving nearly the entirety of the right cerebral hemisphere likely from previous ischemic events and also marked abnormality in the left sternal hemisphere with loss of cortez white matter likely due to previous ischemic event, no acute hemorrhage, satisfactory positioning of the TITLE CHECKER shunt tube, effacement of the ventricular system, basilar cisterns widely patent, bilateral subdural effusions, subdural calcifications and prominent falcine calcification. Given presentation, concern for possible underlying neurological etiology for current decline aside suspected depression. Patient admitted to PCU, maintained on telemetry without event, no worsening of neurological checks, mag normal, TSH normal, elevated BS with pending HgBA1c, ammonia level normal, cardiac enzyme normal. Does appear 03/28/18 improved in appearance and interactive, family agrees, Neurology consultation pending. PT, OT consulted as well as CM. Will need placement given severity of deficits and inability to safely care for self. (2) Intertrigo, Severe: Routine cleansing, maintain on nystatin powder. bathing daily, initiate nystatin powder. (3) Depression: Started on zoloft low dose with plan for titration upward. CM, SW consulted. (4) Hyperglycemia: Admission glucose mildly elevated and repeat AM glucose 160, HgbA1c pending. (5) Poor Foot Care, Contractures, Concurrent Onychomycosis: Podiatry consulted, performing evaluation now. (6) Tobacco Abuse: Encouraged cessation, inpatient consultation per RT, NR if desired. (7) Obesity: Weight loss and lifestyle changes encouraged, nutrition consulted for education and teaching. (8) GERD: Famotidine. (9) DVT Prophylaxis: SCDs, lovenox. Code Visit Inpatient E&M: 33945 Subs Hosp L2
--- NOTE | 2018-03-28 10:56 | PN_ITS ---
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 Frequent Falls, ? Encephalopathy unclear etiology, Failure to Thrive w/ History of Remote TBI w/ Chronic L sided Hemiplegia, Left Vision Field Deficit, Incontinence (Stool/Urine) concerning for Possible Infection RULED OUT, Possible Neurological Etiology versus Chronic TBI deficits confounded by Depression, Unclear Specific Etiology w/ work-up ongoing: ED workup included CMP not marked appearing side mild glucose elevation 113, CBC pending, urinalysis requested per ED and pending however given patient's current disheveled state with severe intertrigo suspected be a poor sample thus deferred to straight cath following admit which was unremarkable, CT head with hypoattenuation involving nearly the entirety of the right cerebral hemisphere likely from previous ischemic events and also marked abnormality in the left sternal hemisphere with loss of cortez white matter likely due to previous ischemic event, no acute hemorrhage, satisfactory positioning of the NAPRAPATH shunt tube, effacement of the ventricular system, basilar cisterns widely patent, bilateral subdural effusions, subdural calcifications and prominent falcine calcification. Given presentation, concern for possible underlying neurological etiology for current decline aside suspected depression. Patient admitted to PCU , maintained on telemetry without event, no worsening of neurological checks, mag normal, TSH normal, elevated BS with pending HgBA1c, ammonia level normal, cardiac enzyme normal. Does appear 03/28/18 improved in appearance and interactive, family agrees, Neurology consultation pending. PT, OT consulted as well as CM. Will need placement given severity of deficits and inability to safely care for self. Patient with no acute events overnight per self and per nursing report. Patient now does admit to mild right ankle discomfort and decreased range of motion although was not market appearing upon ED presentation. He states he is unclear about possible injury prior with falls frequently. Pain film obtained and pending. Patient more alert today, interactive, cheerful with family present additionally and confirmation of patient inability to care for self, frequent falls, decreased interactiveness with family. Patient denies fevers, chills, nausea, emesis, abdominal pain, chest pain or dyspnea. Objective: Physical Examination: General: awake, alert, orientation improved today, 4/, improved affect, more interactive appropriately. Skin: normal color, turgor, no icterus, cyanosis except improved bilateral groin intertrigo. HEENT: AT/NC, EOMI, does have chronic L peripheral field deficit, PERRLA, improved MMM. Lungs: CTA bilaterally, moderate effort, moderate decrease BL bases, no rales, ronchi or wheezing. Heart: Regular rate and rhythm; no gallop, rub audible. Abdomen: soft, obese, abdominal prior surgical scars present, NTTP, ND, normal BS. Extremities: no cyanosis, clubbing, BL LE mild ankle edema, pending podiatry evaluation for poor foot care BL, mild R ankle decreased ROM Neurological: patient awake, alert, orientation improved; cognitive function improved from prior, family notes improved appearance and mentation; pupils equally reactive to light and accomodation aside chronic deficits; cranial nerves grossly normal aside chronic deficits, moving extremities expect L chronic hemiplegia, strength severely globally decreased, requires 3 people to transition to chair this AM. Psychiatric: More appropriate affect today, notes feeling improved, no evidence of anxiety or depression today. Vitals/I&O's: Vital Signs Temp Pulse Resp BP Pulse Ox 98.3 F 76 16 117/70 95 03/28/18 09:26 03/28/18 09:26 03/28/18 09:26 03/28/18 09:26 03/28/18 09:26 Oxygen Delivery Method Room Air Weight: 242 lb 4.608 oz Body Mass Index (BMI) 35.7 Intake and Output for Last 24 Hours 03/26/18 03/27/18 03/28/18 23:59 23:59 23:59 Intake Total 896 / 896 755 / 755 Output Total 400 / 400 Balance 896 / 896 355 / 355 Laboratory Results 03/27/18 18:20: WBC 13.9 H, RBC 4.79, Hgb 14.7, Hct 44.9, MCV 93.7, MCH 30.7, MCHC 32.7, RDW 12.8, RDW Differential 44.2 H, Plt Count 305, MPV 10.3, Immature Gran % (Auto) 0.100, Neut % (Auto) 64.7, Lymph % (Auto) 25.9, [place] % (Auto) 6.9 , Eos % (Auto) 2.3, Baso % (Auto) 0.1, Absolute Neuts (auto) 9.0 H, Absolute Lymphs (auto) 3.59, Total Counted Not Reportable 03/27/18 18:20: Magnesium 2.0, Troponin I < 0.015, TSH 2.16 03/27/18 18:20: Ammonia 26.0 03/28/18 00:40: Urine Color Yellow, Urine Clarity Clear, Urine pH 8.0, Ur Specific [place] 1.015, Urine Protein Negative, Urine Glucose (UA) Normal, Urine Ketones Negative, Urine Occult Blood 50 H, Urine Nitrite Negative, Urine Bilirubin Negative, Urine Urobilinogen 1 H, Ur Leukocyte Esterase 25 H, Urine RBC 5-10 SEEN, Urine WBC 0 SEEN, Ur Squamous Epith Cells 0 SEEN, Urine Bacteria 0 SEEN, Urine Mucus 0 SEEN 03/28/18 05:20: WBC 9.6, RBC 4.48 L, Hgb 14.1, Hct 42.4, MCV 94.6 H, MCH 31.5, MCHC 33.3, RDW 12.9, RDW Differential 43.6, Plt Count 283, MPV 10.7, Immature Gran % (Auto) 0.100, Neut % (Auto) 55.7, Lymph % (Auto) 32.1, [place] % (Auto) 8.3 , Eos % (Auto) 3.4, Baso % (Auto) 0.4, Absolute Neuts (auto) 5.3, Absolute Lymphs (auto) 3.07, Total Counted Not Reportable 03/28/18 05:20: Sodium 142, Potassium 4.0, Chloride 111 H, Carbon Dioxide 24.0, Anion Gap 7, BUN 8, Creatinine 0.76, Estim Creat Clear Calc 126.62, Est GFR ( MDRD) Af Amer 144, Est GFR (MDRD) Non-Af 119, BUN/Creatinine Ratio 10.5, Glucose 160 H, Calcium 7.3 L, Total Bilirubin 0.60, AST 11 L, ALT 22, Alkaline Phosphatase 67, Total Protein 6.3 L, Albumin 2.6 L, Globulin 3.7, Albumin/ Globulin Ratio 0.7 L, Triglycerides 186, Cholesterol 141, LDL Cholesterol 86, VLDL Cholesterol 37, HDL Cholesterol 18 L Current Medications Acetaminophen (Tylenol) 650 mg PO Q4H PRN PRN PRN Reason: Headache/Temp>99F Last Admin: 03/28/18 05:44 Dose: 650 mg Acetaminophen (Tylenol) 650 mg RECTAL Q4H PRN PRN PRN Reason: Headache/Temp>99F Acetaminophen (Tylenol Liquid) 650 mg NG Q4H PRN PRN PRN Reason: Headache/Temp>99F Al Hydroxide/Mg Hydroxide (Mylanta Ii) 30 ml PO Q6H PRN PRN PRN Reason: Gastric burning Aspirin (Aspirin, Baby) 81 mg PO DAILY@0800 [facility] Last Admin: 03/28/18 09:31 Dose: 81 mg Enoxaparin Sodium (Lovenox) 40 mg SC DAILY@1000 [facility] Last Admin: 03/28/18 09:30 Dose: 40 mg Famotidine (Pepcid) 20 mg PO BID [facility] Last Admin: 03/28/18 09:30 Dose: 20 mg Potassium Chloride/Sodium Chloride () 1,000 mls @ 125 mls/hr IV .Q8H [facility] Last Admin: 03/28/18 04:30 Dose: 125 mls/hr Magnesium Hydroxide (Milk Of Magnesia) 30 ml PO DAILY PRN PRN Reason: Constipation Nicotine (Nicoderm Cq (Pbkc)) 7 mg TRANSDERM. DAILY [facility] Last Admin: 03/28/18 09:30 Dose: 7 mg Nutritional Formula (Lactose Free) (Ensure Enlive) 120 ml PO 4X/DAY [facility] Last Admin: 03/28/18 10:25 Dose: Not Given Nystatin (Mycostatin Powder) 1 applic TOPICAL TID [facility] PRN Reason: Protocol Last Admin: 03/28/18 05:44 Dose: 1 applicatio Ondansetron HCl (Zofran) 4 mg IV Q8H PRN PRN PRN Reason: NAUSEA Sertraline HCl (Zoloft) 50 mg PO DAILY [facility] Last Admin: 03/28/18 09:30 Dose: 50 mg Sodium Chloride () 5 - 30 ml IV UD PRN PRN Reason: SALINE FLUSH Trazodone HCl (Desyrel) 50 mg PO QHS PRN PRN Reason: INSOMNIA Medical Necessity - Tobacco Use Smoking Status: Current every day smoker Tobacco Use: Cigarettes Assessment/Plan All Active Problems Failure to thrive in adult (Acute) Frequent falls (Acute) Encephalopathy acute (Acute) The patient is a 42 y/o M w/ PMHx: Depression, Tobacco use, Obesity, 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 (1) Frequent Falls, ? Encephalopathy unclear etiology, Failure to Thrive w/ History of Remote TBI w/ Chronic L sided Hemiplegia, Left Vision Field Deficit, Incontinence (Stool/Urine) concerning for Possible Infection RULED OUT, Possible Neurological Etiology versus Chronic TBI deficits confounded by Depression, Unclear Specific Etiology w/ work-up ongoing: ED workup included CMP not marked appearing side mild glucose elevation 113, CBC pending, urinalysis requested per ED and pending however given patient's current disheveled state with severe intertrigo suspected be a poor sample thus deferred to straight cath following admit which was unremarkable, CT head with hypoattenuation involving nearly the entirety of the right cerebral hemisphere likely from previous ischemic events and also marked abnormality in the left sternal hemisphere with loss of [place] white matter likely due to previous ischemic event, no acute hemorrhage, satisfactory positioning of the NAPRAPATH shunt tube, effacement of the ventricular system, basilar cisterns widely patent, bilateral subdural effusions, subdural calcifications and prominent falcine calcification. Given presentation, concern for possible underlying neurological etiology for current decline aside suspected depression. Patient admitted to PCU , maintained on telemetry without event, no worsening of neurological checks, mag normal, TSH normal, elevated BS with pending HgBA1c, ammonia level normal, cardiac enzyme normal. Does appear 03/28/18 improved in appearance and interactive, family agrees, Neurology consultation pending. PT, OT consulted as well as CM. Will need placement given severity of deficits and inability to safely care for self. (2) Intertrigo, Severe: Routine cleansing, maintain on nystatin powder. bathing daily, initiate nystatin powder. (3) Depression: Started on zoloft low dose with plan for titration upward. CM, SW consulted. (4) Hyperglycemia: Admission glucose mildly elevated and repeat AM glucose 160, HgbA1c pending. (5) Poor Foot Care, Contractures, Concurrent Onychomycosis: Podiatry consulted, performing evaluation now. (6) Tobacco Abuse: Encouraged cessation, inpatient consultation per RT, NR if desired. (7) Obesity: Weight loss and lifestyle changes encouraged, nutrition consulted for education and teaching. (8) GERD: Famotidine. (9) DVT Prophylaxis: SCDs, lovenox. Code Visit Inpatient E&M: 33543 Subs Hosp L2
--- NOTE | 2018-03-28 11:16 | CON.PCM_ITS ---
Reason for Consult Date of Consultation: 03/28/18 Reason for Consultation: Toenails History of Present Illness: The patient is a 42 year old gentleman with hx of TBI w/ shunt and residual left side hemiparesis, tobacco use, depression, poor hygiene, and relates to recent falls was seen today for every long, thickened, and painful toenails. He has not been maintaining them. Patient just had right ankle xrays, relates today he has some ankle pain from one of his falls, but he had no complaints of ankle pain yesterday and no new injuries. This mother was at bedside. Past Medical History Past Medical History (Chronic Problems): Chronic Problems TBI (traumatic brain injury) (Chronic) Left hemiplegia (Chronic) Stool incontinence (Chronic) Tobacco use (Chronic) Obesity (BMI 30-39.9) (Chronic) Depression (Chronic) Allergies No Known Allergies Allergy (Verified 05/14/17 18:23) Home Medications: Ambulatory Orders Medication Instructions Recorded No Known/Unobtainable [No Known 03/01/17 Home Medications] Psychiatric History: Depression Lives: Alone Smoking Status: Current every day smoker Tobacco Use: Cigarettes Alcohol: Occasional Drugs: Marijuana - *Family History Paternal History Items: - - Denies any marked maternal or paternal family history including DM, HTN, HD. Maternal History Items: - - Denies any marked maternal or paternal family history including DM, HTN, HD. Review of Systems Constitutional: Denies: Chills, Fever Gastrointestinal: Denies: Nausea, Vomiting Patient Problems: Active and Suspected Problems Failure to thrive in adult (Acute) Frequent falls (Acute) Encephalopathy acute (Acute) - Physical Exam General: Alert, Oriented x3, Cooperative, No apparent distress Extremities: Capillary Refill Less than 3 Seconds, No Calf Tenderness, Peripheral Pulses Normal, - - Toenails 1-5 bilateral are thickened, dystrophic, very long, yellow w/ subungual debris. There are no open lesions, no erythema, no cellulitis, no streaking bilateral foot/ankle. There is evidence of chronic venous stasis skin changes bilateral lower extremity. There is no ecchymosis bilateral foot/ankle. CFT < 2 seconds to all toes, normal temperature present bilateral foot/ankle. Sensation intact right foot, diminished left foot. Left sided weakness c/w his TBI, right stronger with muscle strength to all muscle groups but overall generalized weakness present. Smooth painfree ROM to the joints of the foot/ankle, there is no gross instability to the foot/ankle bilateral at this time. No pain to the right lateral, medial or posterior aspect , he states pain is at the anterior aspect but no significant POP or pain on ROM at this time. Vital Signs Temp Pulse Resp BP Pulse Ox 98.3 F 76 16 117/70 95 03/28/18 09:26 03/28/18 09:26 03/28/18 09:26 03/28/18 09:26 03/28/18 09:26 Oxygen Delivery Method Room Air Weight: 109.9 kg Body Mass Index (BMI) 35.7 Intake and Output for Last 24 Hours 03/26/18 03/27/18 03/28/18 23:59 23:59 23:59 Intake Total 896 / 896 755 / 755 Output Total 400 / 400 Balance 896 / 896 355 / 355 Laboratory Tests Past 24 Hrs 03/27/18 03/27/18 03/27/18 18:20 18:20 18:20 WBC 13.9 H RBC 4.79 Hgb 14.7 Hct 44.9 MCV 93.7 MCH 30.7 MCHC 32.7 RDW 12.8 RDW Differential 44.2 H Plt Count 305 MPV 10.3 Immature Gran % (Auto) 0.100 Neut % (Auto) 64.7 Lymph % (Auto) 25.9 [place] % (Auto) 6.9 Eos % (Auto) 2.3 Baso % (Auto) 0.1 Absolute Neuts (auto) 9.0 H Absolute Lymphs (auto) 3.59 Total Counted Not Reportable Sodium Potassium Chloride Carbon Dioxide Anion Gap BUN Creatinine Estim Creat Clear Calc Est GFR (MDRD) Af Amer Est GFR (MDRD) Non-Af BUN/Creatinine Ratio Glucose Hemoglobin A1c Calcium Magnesium 2.0 Total Bilirubin AST ALT Alkaline Phosphatase Ammonia 26.0 Troponin I < 0.015 Total Protein Albumin Globulin Albumin/Globulin Ratio Triglycerides Cholesterol LDL Cholesterol VLDL Cholesterol HDL Cholesterol TSH 2.16 Urine Color Urine Clarity Urine pH Ur Specific [place] Urine Protein Urine Glucose (UA) Urine Ketones Urine Occult Blood Urine Nitrite Urine Bilirubin Urine Urobilinogen Ur Leukocyte Esterase Urine RBC Urine WBC Ur Squamous Epith Cells Urine Bacteria Urine Mucus 03/28/18 03/28/18 03/28/18 00:40 05:20 05:20 WBC 9.6 RBC 4.48 L Hgb 14.1 Hct 42.4 MCV 94.6 H MCH 31.5 MCHC 33.3 RDW 12.9 RDW Differential 43.6 Plt Count 283 MPV 10.7 Immature Gran % (Auto) 0.100 Neut % (Auto) 55.7 Lymph % (Auto) 32.1 [place] % (Auto) 8.3 Eos % (Auto) 3.4 Baso % (Auto) 0.4 Absolute Neuts (auto) 5.3 Absolute Lymphs (auto) 3.07 Total Counted Not Reportable Sodium 142 Potassium 4.0 Chloride 111 H Carbon Dioxide 24.0 Anion Gap 7 BUN 8 Creatinine 0.76 Estim Creat Clear Calc 126.62 Est GFR (MDRD) Af Amer 144 Est GFR (MDRD) Non-Af 119 BUN/Creatinine Ratio 10.5 Glucose 160 H Hemoglobin A1c Calcium 7.3 L Magnesium Total Bilirubin 0.60 AST 11 L ALT 22 Alkaline Phosphatase 67 Ammonia Troponin I Total Protein 6.3 L Albumin 2.6 L Globulin 3.7 Albumin/Globulin Ratio 0.7 L Triglycerides 186 Cholesterol 141 LDL Cholesterol 86 VLDL Cholesterol 37 HDL Cholesterol 18 L TSH Urine Color Yellow Urine Clarity Clear Urine pH 8.0 Ur Specific [place] 1.015 Urine Protein Negative Urine Glucose (UA) Normal Urine Ketones Negative Urine Occult Blood 50 H Urine Nitrite Negative Urine Bilirubin Negative Urine Urobilinogen 1 H Ur Leukocyte Esterase 25 H Urine RBC 5-10 SEEN Urine WBC 0 SEEN Ur Squamous Epith Cells 0 SEEN Urine Bacteria 0 SEEN Urine Mucus 0 SEEN 03/28/18 05:20 WBC RBC Hgb Hct MCV MCH MCHC RDW RDW Differential Plt Count MPV Immature Gran % (Auto) Neut % (Auto) Lymph % (Auto) [place] % (Auto) Eos % (Auto) Baso % (Auto) Absolute Neuts (auto) Absolute Lymphs (auto) Total Counted Sodium Potassium Chloride Carbon Dioxide Anion Gap BUN Creatinine Estim Creat Clear Calc Est GFR (MDRD) Af Amer Est GFR (MDRD) Non-Af BUN/Creatinine Ratio Glucose Hemoglobin A1c Pending Calcium Magnesium Total Bilirubin AST ALT Alkaline Phosphatase Ammonia Troponin I Total Protein Albumin Globulin Albumin/Globulin Ratio Triglycerides Cholesterol LDL Cholesterol VLDL Cholesterol HDL Cholesterol TSH Urine Color Urine Clarity Urine pH Ur Specific [place] Urine Protein Urine Glucose (UA) Urine Ketones Urine Occult Blood Urine Nitrite Urine Bilirubin Urine Urobilinogen Ur Leukocyte Esterase Urine RBC Urine WBC Ur Squamous Epith Cells Urine Bacteria Urine Mucus Assessment/Plan All Active Problems Failure to thrive in adult (Acute) Frequent falls (Acute) Encephalopathy acute (Acute) Onychomycosis Right ankle pain Debrided toenails 1-5 bilateral using a nail nipper, this was done without incident. He related to immediate pain relief. Reviewed proper foot care and hygiene with patient. Patient may follow up with [facility] at [facility] for [facility] going foot care. Regarding ankle pain, evaluation performed and reviewed right ankle xrays, evidence of old fracture of the distal fibula which is healed at this time, ankle intact, fib/tib overlap and fibular length within normal limits, no evidence of acute fracture or dislocation. There is no evidence of acute abnormality. He will be receiving physical therapy for ADL, and if ankle pain persists and/or worsens please call podiatry. Otherwise we will follow up as needed. Thank you for consultation.
[2018-03-28 11:56] LABS: Bedside Glucose 136 mg/dL (70-110)
[2018-03-28] MEDS: Insulin Lispro 100 UNIT/ML INSULN.PEN SC ×2 (16:20→21:50)
[2018-03-28 16:36] LABS: Bedside Glucose 153 mg/dL (70-110)
[2018-03-28 22:01] LABS: Bedside Glucose 157 mg/dL (70-110)
[2018-03-29] VITALS (8 sets, daily range): BP systolic 121–147; BP diastolic 65–87; PULSE 54–80; RESP 16–18; TEMP 36.4–36.9; O2SAT 96–98
[2018-03-29] MEDS: Nystatin Powder 15gm Bottle 1 APPLIC TOPICAL ×3 (05:59→21:18)
[2018-03-29 06:16] LABS: Absolute Lymphocyte Count 2.73 X10^3/ul (0.83-4.51); Absolute Neutrophil Count 5.5 X10^3/uL (2.0-7.7); Basophil# 0.04 X10^3/uL; Basophil% 0.4 % (0-1); Eosinophil# 0.34 X10^3/uL; Eosinophils% 3.7 % (0-5); Hematocrit 43.1 % (40-54); Hemoglobin 14.2 g/dl (13.0-16.5); Lymphocyte # 2.73 X10^3/ul (4.0); Lymphocyte % 29.4 % (19-41); Mean Corp Hgb Conc 32.9 g/gl (32-36); Mean Corpuscular Hgb 30.9 pg (27.0-32.0); Mean Corpuscular Volume 93.7 fL (80-94); Mean Platelet Vol. 10.6 fl (6.2-12.0); Monocyte# 0.66 X10^3/uL; Monocyte% 7.1 % (0-10); Neutrophil # 5.46 X10^3/uL (2.7-7.7); Platelet Count 288 K/mm3 (150-450); RBC Distribution Width CV 12.7 % (11.6-14.6); RBC Distribution Width SD 42.9 fl (35.1-43.9); White Blood Count 9.3 K/mm3 (4.4-11.0)
[2018-03-29 06:32] LABS: ALB/GLOB Ratio 0.8 RATIO (0.9-2.4); AST(SGOT) 17 U/L (15-37); Alanine Aminotransfer ALT/SGPT 26 U/L (16-61); Albumin, Serum 2.9 g/dL (3.2-5.0); Alkaline Phosphatase 70 U/L (45-117); Anion Gap 7 (5-15); BUN 11 mg/dL (7-18); BUN/Creat Ratio 13.2 RATIO (10-20); Chloride 108 mmol/L (98-107); Creatinine, Serum 0.83 mg/dL (0.70-1.30); EST Glomerular Filtration Rate 107 mL/min (>60); Est Glom Filt Rate - Afr Amer 130 mL/min (>60); Estimated Creatinine Clearance 115.94 ml/min; Globulin 3.8 g/dL (2.2-4.2); Glucose 176 mg/dL (74-106); Protein, Total 6.7 g/dL (6.4-8.2); Sodium Level 140 mmol/L (136-145)
[2018-03-29 06:41] LABS: POSITIVE COUNT NO; POSITIVE DIFFERENTIAL NO; POSITIVE MORPHOLOGY NO
[2018-03-29 06:49] LABS: Bedside Glucose 180 mg/dL (70-110)
[2018-03-29] MEDS: Insulin Lispro 100 UNIT/ML INSULN.PEN SC ×2 (07:59→11:34)
--- NOTE | 2018-03-29 08:05 | PCM.PROGNOTE ---
Patient Problems: Active and Suspected Problems Failure to thrive in adult (Acute) Frequent falls (Acute) Encephalopathy acute (Acute) Subjective: Chief complaint: Follow-up after admission for frequent falls, debility, question of encephalopathy and functional decline. Patient seen and examined. No acute events overnight. He has no specific complaints except weakness of both legs. Denied chest pain or shortness of breath. No cough or sputum production. Denies fever chills. His vital signs are stable. - Physical Exam General: Alert, Oriented x3, Cooperative, No apparent distress HEENT: Atraumatic, PERRLA, EOMI, Normocephalic Oral: Moist Mucosa, No Gingival or Mucosal Lesions/ Ulcerations Neck: Supple, No JVD, Negative Carotid Bruits, Trachea Midline, Thyroid Normal Size and Texture Lungs: Clear to auscultation, No rhonchi, No wheeze, No rales, Diminished Cardiovascular: Regular rate, Regular Rhythm, Normal S1, Normal S2, PMI Normal Abdomen: Bowel Sounds Present, Soft, Non Tender, Non-Distended, No Hepato-splenomegaly, Obese Extremities: No clubbing, No cyanosis, Edema - Trace edema. Skin: No rashes, No breakdown Lymphatic: No Cervical, Supraclavicular, or Inguinal Adenopathy Neurological: Cranial nerves II-XII grossly intact, - - Left side hemiparesis, more prominent on the left upper extremity. Psych/Mental Status: Normal Affect, Appropriate, Alert and oriented to time, place, person, mood and affect Vital Signs Temp Pulse Resp BP Pulse Ox 97.6 F L 54 L 18 147/87 H 98 03/29/18 02:40 03/29/18 07:26 03/29/18 02:40 03/29/18 02:40 03/29/18 03:00 Oxygen Delivery Method Room Air Weight: 242 lb 4.608 oz Body Mass Index (BMI) 35.7 Intake and Output for Last 24 Hours 03/27/18 03/28/18 03/29/18 23:59 23:59 23:59 Intake Total 896 / 896 3782 / 3782 220 / 220 Output Total 1675 / 1675 Balance 896 / 896 2107 / 2107 220 / 220 Laboratory Tests Past 24 Hrs 03/28/18 03/29/18 03/29/18 05:20 05:45 05:45 WBC 9.3 RBC 4.60 Hgb 14.2 Hct 43.1 MCV 93.7 MCH 30.9 MCHC 32.9 RDW 12.7 RDW Differential 42.9 Plt Count 288 MPV 10.6 Immature Gran % (Auto) 0.400 Neut % (Auto) 59.0 Lymph % (Auto) 29.4 [place] % (Auto) 7.1 Eos % (Auto) 3.7 Baso % (Auto) 0.4 Absolute Neuts (auto) 5.5 Absolute Lymphs (auto) 2.73 Total Counted Not Reportable Sodium 140 Potassium 4.0 Chloride 108 H Carbon Dioxide 25.0 Anion Gap 7 BUN 11 Creatinine 0.83 Estim Creat Clear Calc 115.94 Est GFR (MDRD) Af Amer 130 Est GFR (MDRD) Non-Af 107 BUN/Creatinine Ratio 13.2 Glucose 176 H Hemoglobin A1c 7.0 H Calcium 8.0 L Total Bilirubin 0.60 AST 17 ALT 26 Alkaline Phosphatase 70 Total Protein 6.7 Albumin 2.9 L Globulin 3.8 Albumin/Globulin Ratio 0.8 L POC Glucose 03/29/18 03/28/18 03/28/18 06:46 21:48 16:16 POC Glucose 180 H 157 H 153 H 03/28/18 11:43 POC Glucose 136 H Medical Necessity - Tobacco Use Smoking Status: Current every day smoker Tobacco Use: Cigarettes Assessment/Plan All Active Problems Failure to thrive in adult (Acute) Frequent falls (Acute) Encephalopathy acute (Acute) This is a 42 years old male patient presented to the emergency room because of frequent falls, confusion, inability to care of self and he was admitted with plan of placement to long term facility. 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 His workup was unremarkable. Routine blood work was unremarkable. LFT and TSH were normal. Urinalysis revealed no evidence of acute cystitis or UTI. CT scan brain showed no acute findings. Vital signs are stable. PT OT consulted, plan for placement to long term facility. #2 questionable encephalopathy/confusion: Awake, patient is alert, oriented x3. CT scan brain without acute findings, chronic findings reviewed. Neurology consulted, stated that his primary issue is psychiatric at this point, neurologically stable. #3 hyperglycemia: Without history of diabetes, blood sugar has been up to 180 mg/dL. Hemoglobin A1c is 7. He is on insulin sliding scale. We will start him on glimepiride. #4 severe intertrigo: He is on nystatin powder. #5 traumatic brain injury: With resultant left-sided hemiparesis, chronic. No acute issues, CT scan brain without acute findings. Plan as above. #6 depression: Continue Zoloft and trazodone. #7 GERD: Continue Pepcid. #8 tobacco abuse: NicoDerm patch. #9 DVT prophylaxis: Subcu Lovenox. This note was generated with 24h00 dictation software. It may contain incorrect words, spelling, and punctuation that were not noted in checking the note before signing.
[2018-03-29] MEDS: Famotidine 20 MG Tablet PO ×2 (08:06→21:18)
[2018-03-29] MEDS: Aspirin 81 MG TAB.CHEW PO (08:06)
[2018-03-29] MEDS: Sertraline 50 MG Tablet PO (08:06)
[2018-03-29] MEDS: Enoxaparin 40 MG/0.4 ML Syringe SC (08:06)
--- NOTE | 2018-03-29 08:08 | PN_ITS ---
Patient Problems: Active and Suspected Problems Failure to thrive in adult (Acute) Frequent falls (Acute) Encephalopathy acute (Acute) Subjective: Chief complaint: Follow-up after admission for frequent falls, debility, question of encephalopathy and functional decline. Patient seen and examined. No acute events overnight. He has no specific complaints except weakness of both legs. Denied chest pain or shortness of breath. No cough or sputum production. Denies fever chills. His vital signs are stable. - Physical Exam General: Alert, Oriented x3, Cooperative, No apparent distress HEENT: Atraumatic, PERRLA, EOMI, Normocephalic Oral: Moist Mucosa, No Gingival or Mucosal Lesions/ Ulcerations Neck: Supple, No JVD, Negative Carotid Bruits, Trachea Midline, Thyroid Normal Size and Texture Lungs: Clear to auscultation, No rhonchi, No wheeze, No rales, Diminished Cardiovascular: Regular rate, Regular Rhythm, Normal S1, Normal S2, PMI Normal Abdomen: Bowel Sounds Present, Soft, Non Tender, Non-Distended, No Hepato- splenomegaly, Obese Extremities: No clubbing, No cyanosis, Edema - Trace edema. Skin: No rashes, No breakdown Lymphatic: No Cervical, Supraclavicular, or Inguinal Adenopathy Neurological: Cranial nerves II-XII grossly intact, - - Left side hemiparesis, more prominent on the left upper extremity. Psych/Mental Status: Normal Affect, Appropriate, Alert and oriented to time, place, person, mood and affect Vital Signs Temp Pulse Resp BP Pulse Ox 97.6 F L 54 L 18 147/87 H 98 03/29/18 02:40 03/29/18 07:26 03/29/18 02:40 03/29/18 02:40 03/29/18 03:00 Oxygen Delivery Method Room Air Weight: 242 lb 4.608 oz Body Mass Index (BMI) 35.7 Intake and Output for Last 24 Hours 03/27/18 03/28/18 03/29/18 23:59 23:59 23:59 Intake Total 896 / 896 3782 / 3782 220 / 220 Output Total 1675 / 1675 Balance 896 / 896 2107 / 2107 220 / 220 Laboratory Tests Past 24 Hrs 03/28/18 03/29/18 03/29/18 05:20 05:45 05:45 WBC 9.3 RBC 4.60 Hgb 14.2 Hct 43.1 MCV 93.7 MCH 30.9 MCHC 32.9 RDW 12.7 RDW Differential 42.9 Plt Count 288 MPV 10.6 Immature Gran % (Auto) 0.400 Neut % (Auto) 59.0 Lymph % (Auto) 29.4 [place] % (Auto) 7.1 Eos % (Auto) 3.7 Baso % (Auto) 0.4 Absolute Neuts (auto) 5.5 Absolute Lymphs (auto) 2.73 Total Counted Not Reportable Sodium 140 Potassium 4.0 Chloride 108 H Carbon Dioxide 25.0 Anion Gap 7 BUN 11 Creatinine 0.83 Estim Creat Clear Calc 115.94 Est GFR (MDRD) Af Amer 130 Est GFR (MDRD) Non-Af 107 BUN/Creatinine Ratio 13.2 Glucose 176 H Hemoglobin A1c 7.0 H Calcium 8.0 L Total Bilirubin 0.60 AST 17 ALT 26 Alkaline Phosphatase 70 Total Protein 6.7 Albumin 2.9 L Globulin 3.8 Albumin/Globulin Ratio 0.8 L POC Glucose 03/29/18 03/28/18 03/28/18 06:46 21:48 16:16 POC Glucose 180 H 157 H 153 H 03/28/18 11:43 POC Glucose 136 H Medical Necessity - Tobacco Use Smoking Status: Current every day smoker Tobacco Use: Cigarettes Assessment/Plan All Active Problems Failure to thrive in adult (Acute) Frequent falls (Acute) Encephalopathy acute (Acute) This is a 42 years old male patient presented to the emergency room because of frequent falls, confusion, inability to care of self and he was admitted with plan of placement to group home facility. 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 His workup was unremarkable. Routine blood work was unremarkable. LFT and TSH were normal. Urinalysis revealed no evidence of acute cystitis or UTI. CT scan brain showed no acute findings. Vital signs are stable. PT OT consulted, plan for placement to group home facility. #2 questionable encephalopathy/confusion: Awake, patient is alert, oriented x3. CT scan brain without acute findings, chronic findings reviewed. Neurology consulted, stated that his primary issue is psychiatric at this point, neurologically stable. #3 hyperglycemia: Without history of diabetes, blood sugar has been up to 180 mg /dL. Hemoglobin A1c is 7. He is on insulin sliding scale. We will start him on glimepiride. #4 severe intertrigo: He is on nystatin powder. #5 traumatic brain injury: With resultant left-sided hemiparesis, chronic. No acute issues, CT scan brain without acute findings. Plan as above. #6 depression: Continue Zoloft and trazodone. #7 GERD: Continue Pepcid. #8 tobacco abuse: NicoDerm patch. #9 DVT prophylaxis: Subcu Lovenox. This note was generated with [employer] dictation software. It may contain incorrect words, spelling, and punctuation that were not noted in checking the note before signing.
--- NOTE | 2018-03-29 09:27 | CASEMGMT ---
SW met with patient, introduced self and role at [facility]. Patient was very polite and eager to talk with SW about d/c plan. He was concerned about paying for prison care. SW explained to him his insurance should cover him going to a facility for rehab. He was very pleased to hear this and he said it gives him hope. He said he wants to get stronger, so he can go back home and be independent. He asked SW to come back when his mom comes in as she will help in the decision making process. SW gave him SW's card and told him to ask for SW when his mom gets here. Plan: SNF for short term rehab. Allison ZAPATA MSW
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
[2018-03-29 11:40] LABS: Bedside Glucose 161 mg/dL (70-110)
--- NOTE | 2018-03-29 15:13 | CASEMGMT ---
MEIR spoke with patient, his mom, and his brother. It was decided SW will send referrals to [facility], [place], [facility], and [facility]. MEIR will then let family know who has accepted patient. MEIR called and faxed referrals to [facility], [place], and [facility]. [facility] called and they can take patient as long as he knows he is not allowed to smoke. MEIR spoke with patient's mom and let her know about [facility]. She said she would be fine with patient going to [facility]. MEIR called Donita at [facility] and let her know. She will start the pre-cert process. Plan: [facility] pending pre-cert Allison ZAPATA MSW
[2018-03-29 16:36] LABS: Bedside Glucose 124 mg/dL (70-110)
[2018-03-29 21:27] LABS: Bedside Glucose 105 mg/dL (70-110)
[2018-03-30 02:20] VITALS: BP 121/74; PULSE 75; RESP 18; TEMP 36.9; O2SAT 96
[2018-03-30 02:24] VITALS: O2SAT 96
[2018-03-30] MEDS: Nystatin Powder 15gm Bottle 1 APPLIC TOPICAL ×2 (05:06→12:33)
[2018-03-30 07:06] LABS: Bedside Glucose 148 mg/dL (70-110)
[2018-03-30] MEDS: Sertraline 50 MG Tablet PO (08:17)
[2018-03-30] MEDS: Aspirin 81 MG TAB.CHEW PO (08:18)
[2018-03-30] MEDS: Enoxaparin 40 MG/0.4 ML Syringe SC (08:18)
[2018-03-30] MEDS: Famotidine 20 MG Tablet PO (08:18)
[2018-03-30 08:20] VITALS: BP 129/83; PULSE 71; RESP 18; TEMP 36.8; O2SAT 98
--- NOTE | 2018-03-30 11:15 | CASEMGMT ---
Received fax from Mae Edwards at [facility], patient has been approved for SNF level 2 NOT ALF. Information relayed to MEIR Zamarripa.
[2018-03-30 11:20] LABS: Bedside Glucose 150 mg/dL (70-110)
--- NOTE | 2018-03-30 11:20 | PCM.PROGNOTE ---
Patient Problems: Active and Suspected Problems Failure to thrive in adult (Acute) Frequent falls (Acute) Encephalopathy acute (Acute) Subjective: Chief complaint: Follow-up after admission for frequent falls, debility, question of encephalopathy and functional decline. Patient seen and examined. No acute events overnight. Today, he denies any significant complaints. He is alert and oriented ?3. Vital signs are stable. - Physical Exam General: Alert, Oriented x3, Cooperative, No apparent distress HEENT: Atraumatic, PERRLA, EOMI, Normocephalic Oral: Moist Mucosa, No Gingival or Mucosal Lesions/ Ulcerations Neck: Supple, No JVD, Negative Carotid Bruits, Trachea Midline, Thyroid Normal Size and Texture Lungs: Clear to auscultation, No rhonchi, No wheeze, No rales, Diminished Cardiovascular: Regular rate, Regular Rhythm, Normal S1, Normal S2, No murmurs Abdomen: Bowel Sounds Present, Soft, Non Tender, Non-Distended, No Hepato-splenomegaly, Obese Extremities: No clubbing, No cyanosis, No edema Skin: No rashes, No breakdown Lymphatic: No Cervical, Supraclavicular, or Inguinal Adenopathy Neurological: Cranial nerves II-XII grossly intact, - - Left-sided hemiparesis. Psych/Mental Status: Normal Affect, Appropriate Vital Signs Temp Pulse Resp BP Pulse Ox 98.2 F 71 18 129/83 H 98 03/30/18 08:20 03/30/18 08:20 03/30/18 08:20 03/30/18 08:20 03/30/18 08:20 Oxygen Delivery Method Room Air Weight: 242 lb 4.608 oz Body Mass Index (BMI) 35.7 Intake and Output for Last 24 Hours 03/28/18 03/29/18 03/30/18 23:59 23:59 23:59 Intake Total 3782 / 3782 940 / 940 390 / 390 Output Total 1675 / 1675 500 / 500 500 / 500 Balance 2107 / 2107 440 / 440 -110 / -110 POC Glucose 03/30/18 03/29/18 03/29/18 07:00 21:16 16:30 POC Glucose 148 H 105 124 H 03/29/18 11:32 POC Glucose 161 H Medical Necessity - Tobacco Use Smoking Status: Current every day smoker Tobacco Use: Cigarettes Assessment/Plan All Active Problems Failure to thrive in adult (Acute) Frequent falls (Acute) Encephalopathy acute (Acute) This is a 42 years old male patient presented to the emergency room because of frequent falls, confusion, inability to care of self and he was admitted with plan of placement to residential facility. 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 His workup was unremarkable. Routine blood work was unremarkable. LFT and TSH were normal. Urinalysis revealed no evidence of acute cystitis or UTI. CT scan brain showed no acute findings. Vital signs are stable. Awaiting insurance approval for placement to residential facility. #2 questionable encephalopathy/confusion: Awake, patient is alert, oriented x3. CT scan brain without acute findings, chronic findings reviewed. Neurology consulted, stated that his primary issue is psychiatric at this point, neurologically stable. #3 hyperglycemia: Without history of diabetes, blood sugar has been up to 180 mg/dL. Hemoglobin A1c is 7. He is on insulin sliding scale. We will start him on glimepiride. #4 severe intertrigo: He is on nystatin powder. #5 traumatic brain injury: With resultant left-sided hemiparesis, chronic. No acute issues, CT scan brain without acute findings. Plan as above. #6 depression: Continue Zoloft and trazodone. #7 GERD: Continue Pepcid. #8 tobacco abuse: NicoDerm patch. #9 DVT prophylaxis: Subcu Lovenox. This note was generated with [employer] dictation software. It may contain incorrect words, spelling, and punctuation that were not noted in checking the note before signing.
--- NOTE | 2018-03-30 11:23 | PN_ITS ---
Patient Problems: Active and Suspected Problems Failure to thrive in adult (Acute) Frequent falls (Acute) Encephalopathy acute (Acute) Subjective: Chief complaint: Follow-up after admission for frequent falls, debility, question of encephalopathy and functional decline. Patient seen and examined. No acute events overnight. Today, he denies any significant complaints. He is alert and oriented ?3. Vital signs are stable. - Physical Exam General: Alert, Oriented x3, Cooperative, No apparent distress HEENT: Atraumatic, PERRLA, EOMI, Normocephalic Oral: Moist Mucosa, No Gingival or Mucosal Lesions/ Ulcerations Neck: Supple, No JVD, Negative Carotid Bruits, Trachea Midline, Thyroid Normal Size and Texture Lungs: Clear to auscultation, No rhonchi, No wheeze, No rales, Diminished Cardiovascular: Regular rate, Regular Rhythm, Normal S1, Normal S2, No murmurs Abdomen: Bowel Sounds Present, Soft, Non Tender, Non-Distended, No Hepato- splenomegaly, Obese Extremities: No clubbing, No cyanosis, No edema Skin: No rashes, No breakdown Lymphatic: No Cervical, Supraclavicular, or Inguinal Adenopathy Neurological: Cranial nerves II-XII grossly intact, - - Left-sided hemiparesis. Psych/Mental Status: Normal Affect, Appropriate Vital Signs Temp Pulse Resp BP Pulse Ox 98.2 F 71 18 129/83 H 98 03/30/18 08:20 03/30/18 08:20 03/30/18 08:20 03/30/18 08:20 03/30/18 08:20 Oxygen Delivery Method Room Air Weight: 242 lb 4.608 oz Body Mass Index (BMI) 35.7 Intake and Output for Last 24 Hours 03/28/18 03/29/18 03/30/18 23:59 23:59 23:59 Intake Total 3782 / 3782 940 / 940 390 / 390 Output Total 1675 / 1675 500 / 500 500 / 500 Balance 2107 / 2107 440 / 440 -110 / -110 POC Glucose 03/30/18 03/29/18 03/29/18 07:00 21:16 16:30 POC Glucose 148 H 105 124 H 03/29/18 11:32 POC Glucose 161 H Medical Necessity - Tobacco Use Smoking Status: Current every day smoker Tobacco Use: Cigarettes Assessment/Plan All Active Problems Failure to thrive in adult (Acute) Frequent falls (Acute) Encephalopathy acute (Acute) This is a 42 years old male patient presented to the emergency room because of frequent falls, confusion, inability to care of self and he was admitted with [facility]. 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 His workup was unremarkable. Routine blood work was unremarkable. LFT and TSH were normal. Urinalysis revealed no evidence of acute cystitis or UTI. CT scan brain showed no acute findings. Vital signs are stable. Awaiting insurance approval for [facility] to [facility] facility. #2 questionable encephalopathy/confusion: Awake, patient is alert, oriented x3. CT scan brain without acute findings, chronic findings reviewed. Neurology consulted, stated that his primary issue is psychiatric at this point, neurologically stable. #3 hyperglycemia: Without history of diabetes, blood sugar has been up to 180 mg /dL. Hemoglobin A1c is 7. He is on insulin sliding scale. We will start him on glimepiride. #4 severe intertrigo: He is on nystatin powder. #5 traumatic brain injury: With resultant left-sided hemiparesis, chronic. No acute issues, CT scan brain without acute findings. Plan as above. #6 depression: Continue Zoloft and trazodone. #7 GERD: Continue Pepcid. #8 tobacco abuse: NicoDerm patch. #9 DVT prophylaxis: Subcu Lovenox. This note was generated with [employer] dictation software. It may contain incorrect words, spelling, and punctuation that were not noted in checking the note before signing.
[2018-03-30] MEDS: Insulin Lispro 100 UNIT/ML INSULN.PEN SC (12:33)
--- NOTE | 2018-03-30 12:46 | PCM.TXEXTCAR ---
- Diet 03/28/18 11:34 Diet: Calorie Controlled Is pt able to select menu?: Yes How many daily calories?: 1800 calorie - Suggestions for Active Care Change Position every (hours): 3 Hours to sit in a chair: 2 Times a day to sit in chair: 3 - Therapies Weight Bearing: Weight bearing as tolerated Physical Therapy: Eval and Treat Occupational Therapy: Eval and Treat - Allergies/Procedures Done in Hospital Allergies/Adverse Reactions: Allergies No Known Allergies Allergy (Verified 05/14/17 18:23) - Type of Care/Length of Stay Estimated LOS: Convalescent Care Less Than 30 days Type of Care Needed: Skilled Rehab Potential: Fair Prognosis: Fair - Additional Orders/Day of Discharge Additional Orders: Follow-up with psychiatry/counseling center as outpatient. H&P will serve as current which was dated: 03/27/18 Day of Discharge: 03/30/18 - Dietary and Speech Recommendations Dietitian Recommendations/Changes: Rec 1999 calorie controlled diet. 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 - Follow Up Care Primary Care Physician: Heron Mcdaniel DO [Primary Care Provider] - Please follow up with your Primary Care Physician in: 1 week.
--- NOTE | 2018-03-30 12:52 | TREXTCAR_ITS ---
- Diet 03/28/18 11:34 Diet: Calorie Controlled Is pt able to select menu?: Yes How many daily calories?: 1800 calorie - Suggestions for Active Care Change Position every (hours): 3 Hours to sit in a chair: 2 Times a day to sit in chair: 3 - Therapies Weight Bearing: Weight bearing as tolerated Physical Therapy: Eval and Treat Occupational Therapy: Eval and Treat - Allergies/Procedures Done in Hospital Allergies/Adverse Reactions: Allergies No Known Allergies Allergy (Verified 05/14/17 18:23) - Type of Care/Length of Stay Estimated LOS: Convalescent Care Less Than 30 days Type of Care Needed: Skilled Rehab Potential: Fair Prognosis: Fair - Additional Orders/Day of Discharge Additional Orders: Follow-up with psychiatry/counseling center as outpatient. H&P will serve as current which was dated: 03/27/18 Day of Discharge: 03/30/18 - Dietary and Speech Recommendations Dietitian Recommendations/Changes: Rec 1999 calorie controlled diet. 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 - Follow Up Care Primary Care Physician: Heron Mcdaniel DO [Primary Care Provider] - Please follow up with your Primary Care Physician in: 1 week.
--- NOTE | 2018-03-30 13:22 | CASEMGMT ---
Social Work Received a phone call from Susy from [facility] and pt insurance has authorized admission. Pt can be admitted today. Physician informed and plans to d/c pt today. SW met with pt in room and informed of plan to d/c to [facility] today. Pt is agreeable and has no preference on transportation company used. With pt permission phone call placed to pt mother and informed of d/c and she is agreeable and will meet pt at facility later today. Transportation arranged for [facility] with tile picker at 3:00. Facility notified of time of d/c and pt, mother and nurse notified of time of d/c. Orders faxed. No further d/c needs. Plan: [facility] SNF today JOEL Charles
[2018-03-30 14:20] VITALS: BP 128/84; PULSE 78; RESP 18; TEMP 36.8; O2SAT 97
--- NOTE | 2018-03-30 14:21 | NURSING ---
called report to Dianna at [facility].
--- NOTE | 2018-03-30 15:08 | PCM.DC.SUM ---
Discharge Date and Diagnosis Date of Admission: 03/27/18 Date of Discharge: 03/30/18 - Primary Discharge Diagnosis Active and Suspected Problems #1 frequent falls/physical debility/functional decline. #2 questionable encephalopathy/confusion. #3 hyperglycemia, newly diagnosed type 2 diabetes mellitus. #4 severe intertrigo. - Secondary Discharge Diagnosis Chronic Problems TBI (traumatic brain injury) (Chronic) Left hemiplegia (Chronic) Stool incontinence (Chronic) Tobacco use (Chronic) Obesity (BMI 30-39.9) (Chronic) Depression (Chronic) Hospital Course and Treatment Imaging Results: Clinical Impression(s) from Imaging Studies Brain CT 03/27/18 15:54 IMPRESSION: Hypoattenuation involving nearly the entirety of the right cerebral hemisphere likely from previous ischemic event. There is also marked abnormality in the left sternal hemisphere with loss of cortez-white matter differentiation also likely due to previous ischemic event. There is no acute hemorrhage Satisfactory positioning of a AEROLOGIST shunt tube Effacement of the ventricular system, basilar cisterns widely patent Bilateral subdural effusions Subdural calcifications and prominent falcine calcification Electronically Signed: Teddy Hernández MD at 16:58 EDT , Service support , Ankle X-Ray 03/28/18 10:14 IMPRESSION: 1. No acute fracture or dislocation of the right ankle. 2. Old fracture deformity of the right distal fibula. Electronically Signed: Gonzalo Giordano MD at 11:23 EDT , Service support , Dr. Leal, neurology. Dr. mendes podiatry medicine, Operations: None Procedures: None Summary of Care Provided: The patient is a 42 year old M admitted because of frequent falls, confusion and inability to care of himself. He has history of traumatic brain injury with chronic left-sided hemiparesis and urine incontinence. During this admission, his workup was unremarkable except for hyperglycemia. CT scan brain showed no acute findings. LFT and TSH were normal. Urinalysis revealed no evidence of acute cystitis or UTI. Neurology consulted and stated that his primary issue is psychiatric and he has no focal deficit. No other recommendations provided. His blood sugar went up to 180 mg/dL and his hemoglobin A1c was 7. He was started on glimepiride for newly diagnosed type 2 diabetes mellitus. He has severe intertrigo in his groin area that was treated with nystatin powder. His vital signs remained stable throughout admission. Because of his dramatic brain injury and chronic left-sided paresis, patient was appropriate candidate for placement to care home facility. Patient was discharged to care home facility in a stable medical condition, discharged on glimepiride for type 2 diabetes mellitus, discharged on Zoloft and trazodone for depression and bipolar, discharged on Pepcid, recommended a failure to psychiatric or counseling center as outpatient, recommended follow-up with PCP in 1 week. Home Medications: Medications to take at Discharge Famotidine [Pepcid] 20 mg PO BID #30 tab 03/30/18 Glimepiride [Amaryl] 2 mg PO DAILY@0800 #30 tab 03/30/18 Nystatin Powder [Mycostatin Powder] 1 applic TOPICAL TID #1 bottle 03/30/18 Sertraline HCl [Zoloft] 50 mg PO DAILY #30 tab 03/30/18 traZODone [Desyrel] 50 mg PO QHS PRN #30 tablet 03/30/18 Following Prescrptions Were Given to Patient: Glimepiride [Amaryl] 2 mg PO DAILY@0800 #30 tab Sertraline HCl [Zoloft] 50 mg PO DAILY #30 tab traZODone [Desyrel] 50 mg PO QHS PRN #30 tablet PRN Reason: Insomnia Famotidine [Pepcid] 20 mg PO BID #30 tab Nystatin Powder [Mycostatin Powder] 1 applic TOPICAL TID #1 bottle Primary Care Physician: Heron Mcdaniel DO [Primary Care Provider] - Please follow up with your Primary Care Physician in: 1 week. Disposition: Nursing Home facility Minutes spent on discharge:: 26 Patient Condition:: Stable Medical Necessity - Tobacco Use Smoking Status: Current every day smoker Tobacco Use: Cigarettes Meaningful Use Info Meaningful Use Diagnoses (Choose all that apply): None applicable Code Visit Inpatient E&M: 70017 Disch Hosp
== END 2018-03-30 15:34 | disposition skilled nursing facility (03) | DRG 464 ==
LOC: ED 15:57 → PCU 17:38
PROVIDERS: Admitting Provider Family Medicine; Emergency Provider Emergency Medicine; Family Provider Preventive Medicine Occupational Medicine; PCP Preventive Medicine Occupational Medicine; Visit Provider Hospitalist
DX: R53.81 Other malaise (principal); R29.6 Repeated falls; L30.4 Erythema intertrigo; E66.9 Obesity, unspecified; Z68.35 Body mass index [BMI] 35.0-35.9, adult; Z98.2 Presence of cerebrospinal fluid drainage device; E11.9 Type 2 diabetes mellitus without complications; G93.40 Encephalopathy, unspecified; R41.0 Disorientation, unspecified; R15.9 Full incontinence of feces; F32.9 Major depressive disorder, single episode, unspecified; F17.210 Nicotine dependence, cigarettes, uncomplicated; G81.94 Hemiplegia, unspecified affecting left nondominant side; B35.1 Tinea unguium; S06.9X9S Unspecified intracranial injury with loss of consciousness of unspecified duration, sequela; V89.2XXS Person injured in unspecified motor-vehicle accident, traffic, sequela
CPT/HCPCS: 36415; 70450; 73610; 80048; 80053; 80061; 81001; 82140; 82962; 83036; 83735; 84443; 84484; 85025; 97162; 97166; 97530; 97802; 99285; J7030

== ENCOUNTER 2021-02-02 16:50 | Emergency (ER) | payer MEDICAID, SELFPAY ==
[2021-02-02 16:52] VITALS: BP 118/71; PULSE 95; RESP 16; TEMP 37.3; O2SAT 95; BMI 38.6
--- NOTE | 2021-02-02 18:00 | CM.ED ---
SOCIAL WORK Patient arrives by [facility] from [facility] due to reported threatening and combative behavior. Patient calm and cooperative here. Call to [facility], spoke with Rosa. Per Rosa, patient had dental pain earlier today and staff did not allow patient smoke break to give his mouth a rest. Rosa reports patient became agitated and began threatening staff and residents. Rosa reports patient would not leave the common area so that staff could medicate patient. Rosa reports patient attempted to sign out AMA. Rosa reports patient with history of TBI. Rosa reports patient will go from alert and oriented x4 to x1. Patient is his own person. Attempted to contact patient mother, Ester and father, Seth. No answer, left message. Dr. Man updated on the above. Alfonzo Davis, GROUP CARE WORKER, USED CAR SALES MANAGER
[2021-02-02 18:05] VITALS: RESP 16
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
[2021-02-02 19:21] VITALS: RESP 16
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
[2021-02-02 20:00] VITALS: RESP 16
== END 2021-02-02 20:37 | disposition skilled nursing facility (03) ==
LOC: ED 19:52
PROVIDERS: Emergency Provider Emergency Medicine; PCP Preventive Medicine Occupational Medicine
DX: R45.1 Restlessness and agitation (principal); Z87.820 Personal history of traumatic brain injury; E11.9 Type 2 diabetes mellitus without complications; F32.9 Major depressive disorder, single episode, unspecified; Z79.4 Long term (current) use of insulin; Z79.82 Long term (current) use of aspirin; Z79.899 Other long term (current) drug therapy; F17.200 Nicotine dependence, unspecified, uncomplicated
CPT/HCPCS: 99285

== ENCOUNTER 2021-07-26 06:33 | Day surgery (SDC) | payer MEDICAID, SELFPAY ==
[2021-07-26 07:02] VITALS: BP 109/59; PULSE 62; RESP 16; TEMP 36.2; O2SAT 97; BMI 37.0
[2021-07-26] MEDS: Lactated Ringers 1,000 ML 100 ML IV (07:30)
[2021-07-26 07:35] LABS: Bedside Glucose 138 mg/dL (70-110)
[2021-07-26] MEDS: Oxymetazoline 0.05% 1 SPRAY SPRAY.BTL 15 SPRAY (10:30)
--- NOTE | 2021-07-26 10:51 | PCM.OPRPT ---
Problems Associated Problem List Diagnoses (1) Chronic serous otitis media, bilateral: (2) Mixed hearing loss, bilateral: (3) TBI (traumatic brain injury): Report of Operation Date of Procedure: 07/26/21 Pre-Operative Diagnosis: Chronic serous otitis media, mixed hearing loss, traumatic brain injury Post-Operative Diagnosis: Same Surgery/Procedure Performed:: Bilateral myringotomy tube placement Description of Surgical Findings:: Vinnie is a 45-year-old male with a history of traumatic brain injury who presents with a sudden change in hearing. On exam he is noted to have bilateral middle ear effusions as well as a mild underlying sensorineural hearing loss. Given the significant impairment of his hearing secondary to the fluid myringotomy tube placement was offered and he was eager to proceed. The risks, alternatives, potential complications, and benefits were discussed at length and any questions answered to the patient and/or caregiver's satisfaction. Witnessed informed consent was obtained in the office, and the patient and/or caregiver was agreeable to proceed. Procedure went as follows: The patient was identified in the preoperative holding and brought to the operating room, and placed under general anesthesia. When appropriate anesthesia was obtained, the operative microscope was brought into the field and beginning on the right side the external auditory canal and tympanic membrane visualized. This is noted to be opaque with effusion. A myringotomy was then placed in the anteroinferior portion the tympanic membrane and Nichols type II tympanostomy tube placed followed by oxymetazoline drops. Similar procedure findings a completed on the contralateral side. The patient was then returned to anesthesia, revived and returned to recovery without complication. Surgeon: Neftali Wang Type of Anesthesia: General Anesthesiologist: Ravindra Fajardo Special Medications: none Specimen's removed: none Drains: none Estimated Blood Loss (mL): 0 mL Fluids Replaced: 500 mL Grafts/Implants Used: ear tubes Complications none Admit VTE Documentation VTE Present on Admission: No VTE Mechan Device Prophylaxis: SCD's VTE Pharm Prophylaxis ordered?: No
--- NOTE | 2021-07-26 10:58 | DCINST_ITS ---
Discharge Instructions Diet Discharge Diet: No restrictions Activity Discharge Activity: Return to Normal Activity Dressing / Incision Call your doctor if your incision/area has: Continuous Slow Oozing Call your doctor if you observe: Fever of 101 or Higher and Uncontrolled pain Follow Up Care Please Follow Up With: Neftali Wang MD When: 2 weeks Test Results: Test results from this visit will be discussed in further detail at your follow-up appointment, if applicable. Discharge Plan Admission Primary Reason for Your Visit: Chronic serous middle er fluid, mixed hearing loss, TBI Attending Provider: Neftali Wang Primary Care Provider: Heron Mcdaniel Discharge Orders/Prescriptions Prescriptions: New acetaminophen 500 mg Tablet 500 mg PO Q4H PRN PRN (Reason: Pain Score 1-5/10) Qty: 0 RF: 0 Continued atorvastatin 40 mg Tablet 40 mg PO QHS RF: 0 metformin 500 mg Tablet 500 mg PO BID RF: 0 cimetidine 400 mg Tablet 400 mg PO BID RF: 0 donepezil 10 mg Tablet 10 mg PO QHS RF: 0 lisinopril 20 mg Tablet 10 mg PO DAILY RF: 0 omeprazole 40 mg Capsule,Delayed Release(Dr/Ec) 20 mg PO QODAY RF: 0 aspirin 81 mg Tablet,Delayed Release (Dr/Ec) 81 mg PO DAILY RF: 0 bumetanide 1 mg Tablet 1 mg PO DAILY RF: 0 hydroxyzine pamoate [Vistaril] 25 mg Capsule 25 mg PO QHS RF: 0 insulin aspart U-100 [Novolog Flexpen U-100 Insulin] 100 unit/mL (3 mL) Insulin Pen 18 unit SUBCUT TIDCM RF: 0 calcium carbonate-vitamin D3 500 mg(1,250mg) -125 unit Tablet 1 tab PO BID RF: 0 Lantus Solostar U-100 Insulin 100 unit/mL (3 mL) Insulin Pen 35 unit subcut QHS RF: 0 sertraline 50 MG tablet 125 mg PO DAILY RF: 0 divalproex [Depakote] 250 mg Tablet,Delayed Release (Dr/Ec) 250 mg PO BID RF: 0 tamsulosin [Flomax] 0.4 mg Capsule 0.4 mg PO DAILY RF: 0 ergocalciferol (vitamin D2) [Vitamin D2] 1,250 mcg (50,000 unit) Capsule 1,250 mcg PO FR RF: 0 fluticasone propionate [Flonase Allergy Relief] 50 mcg/actuation [place],Suspension 1 spray INTRANASAL DAILY RF: 0 senna 8.6 mg Capsule 8.6 mg PO DAILY RF: 0 insulin glargine 100 unit/mL Cartridge 40 unit SUBCUT DAILY RF: 0 chlorhexidine gluconate 0.12 % Mouthwash 15 ml MUCOUS MEMBRANE BID RF: 0 potassium chloride 20 mEq Tablet Extended Release 40 meq PO DAILY RF: 0 Referrals / Follow Up: Heron Mcdaniel DO [Primary Care Provider] - Disposition Disposition (needs filled in before D/C Order can be placed): Home, Self Care
[2021-07-26 11:01] VITALS: BP 109/59; BP 146/97; PULSE 69; RESP 16; TEMP 36.2; O2SAT 97
[2021-07-26 11:07] VITALS: BP 109/59; BP 125/83; PULSE 75; RESP 16; O2SAT 98
[2021-07-26 11:12] VITALS: BP 109/59; BP 123/76; PULSE 69; RESP 16; O2SAT 97
[2021-07-26 11:17] VITALS: BP 109/59; BP 118/84; PULSE 67; PULSE 78; RESP 16; TEMP 36.3; O2SAT 96; O2SAT 99
[2021-07-26 11:20] LABS: Bedside Glucose 132 mg/dL (70-110)
[2021-07-26 11:43] VITALS: BP 109/59
== END 2021-07-26 11:50 | disposition home or self-care (01) ==
LOC: SDC 06:35 → AC 06:36
PROVIDERS: PCP Preventive Medicine Occupational Medicine; Referring Provider Otolaryngology; Visit Provider Otolaryngology
PROC: (CPT 69436; principal; 2021-07-26 09:05)
DX: H65.23 Chronic serous otitis media, bilateral (principal); H90.6 Mixed conductive and sensorineural hearing loss, bilateral; H61.23 Impacted cerumen, bilateral; H69.93 Unspecified Eustachian tube disorder, bilateral; I10 Essential (primary) hypertension; K21.9 Gastro-esophageal reflux disease without esophagitis; E11.9 Type 2 diabetes mellitus without complications; F41.9 Anxiety disorder, unspecified; E78.5 Hyperlipidemia, unspecified; F32.A Depression, unspecified; Z86.73 Personal history of transient ischemic attack (TIA), and cerebral infarction without residual deficits; Z79.4 Long term (current) use of insulin; Z79.82 Long term (current) use of aspirin; Z79.899 Other long term (current) drug therapy
CPT/HCPCS: 00126; 69436; 82962; J7120; J2405